=== PATIENT | female | born 1960 | race Caucasian/White ===

== ENCOUNTER → 2017-04-05 | Outpatient (CLI) | payer OTHER ==
[~2017-04-05] MED LIST: CHOL100027 PO; CLX20 PO; CYAN10004 PO; GFNSR600 PO; MULT-513 PO; OXYSR20 PO; RXC5 PO; XRL10 PO
--- NOTE | 2017-04-05 07:51 | DIAGNOSTIC IMAGING REPORT ---
FUSION CT SINUSES W/O HISTORY: Recurrent sinus infections. R51 Headache TECHNIQUE: Multiaxial CT images of the sinuses were performed reformatted in the coronal plane without the use of intravenous contrast. Fusion CT sinus protocol was also obtained. COMPARISON STUDY: None. FINDINGS: Partial opacification of the lateral aspect of the right frontal sinus and right frontoethmoidal recess with a small amount of fluid. Otherwise, the ethmoid air cells, sphenoid sinuses, left maxillary sinus, mastoid air cells, left frontal sinus are clear. Mild mucosal thickening within the floor the right maxillary sinus. The nasal septum is essentially midline. Bilateral ostiomeatal units are patent. The orbital floors and lamina papyracea are intact. The orbits are unremarkable. The visualized brain parenchyma is unremarkable. The pterygopalatine fossa are intact. IMPRESSION: Mild right-sided sinus disease as described above. Electronically signed by: Raza Guzman M.D. 04/05/2017 7:49 AM Dictated Date/Time: 04/05/2017 7:44 AM
== END | disposition home or self-care (01) ==
LOC: C.CTS 07:24
PROVIDERS: ATTEND Physician Assistant
DX: J01.01 Acute recurrent maxillary sinusitis (principal); R51 Headache

== ENCOUNTER 2019-09-21 06:06 | Inpatient (IN) ==
--- NOTE | 2019-09-04 13:12 | PAT Medication Instructions ---
Medication Instructions Date of Service September 04, 2019 Home Medications citalopram 40 mg tablet 40 mg PO HS diclofenac sodium 1 % topical gel 4 gm TOP QID PRN fluconazole 150 mg tablet 150 mg PO Q3D PRN furosemide 40 mg tablet 40 mg PO QAM gabapentin 800 mg tablet 800 mg PO TID lorazepam 0.5 mg tablet 0.5 mg SL TID PRN montelukast 10 mg tablet 10 mg PO QPM naproxen sodium 220 mg capsule 220 mg PO BID PRN omeprazole 20 mg capsule,delayed release 20 mg PO BID ranitidine HCl 150 mg capsule 150 mg PO HS ursodiol 300 mg capsule 300 mg PO BID hydrocodone 10 mg-acetaminophen 325 mg tablet 1 tab PO BID PRN albuterol sulfate [Ventolin HFA] 1 puff INHALATION Q6H PRN amoxicillin 875 mg PO BID cholecalciferol (vitamin D3) 1,000 unit PO DAILY cyanocobalamin (vitamin B-12) 500 mcg PO DAILY levocetirizine [Xyzal] 5 mg PO HS multivitamin 1 tab PO QAM ASK your surgeon for instructions naproxen sodium 220 mg capsule 220 mg PO BID PRN STOP taking 24 hours before surgery diclofenac sodium 1 % topical gel 4 gm TOP QID PRN DO NOT take the morning of surgery furosemide 40 mg tablet 40 mg PO QAM cholecalciferol (vitamin D3) 1,000 unit PO DAILY cyanocobalamin (vitamin B-12) 500 mcg PO DAILY multivitamin 1 tab PO QAM Take morning of surgery With a small sip of water, OTHERWISE NOTHING TO EAT OR DRINK AFTER MIDNIGHT: fluconazole 150 mg tablet 150 mg PO Q3D PRN (if needed) gabapentin 800 mg tablet 800 mg PO TID lorazepam 0.5 mg tablet 0.5 mg SL TID PRN (if needed) omeprazole 20 mg capsule,delayed release 20 mg PO BID ursodiol 300 mg capsule 300 mg PO BID hydrocodone 10 mg-acetaminophen 325 mg tablet 1 tab PO BID PRN (if needed, may be taken up to four hours before surgery) albuterol sulfate [Ventolin HFA] 1 puff INHALATION Q6H PRN (if needed, and bring with you to the hospital) amoxicillin 875 mg PO BID Take evening before surgery citalopram 40 mg tablet 40 mg PO HS diclofenac sodium 1 % topical gel 4 gm TOP QID PRN (if needed) fluconazole 150 mg tablet 150 mg PO Q3D PRN (if needed) gabapentin 800 mg tablet 800 mg PO TID lorazepam 0.5 mg tablet 0.5 mg SL TID PRN (if needed) montelukast 10 mg tablet 10 mg PO QPM omeprazole 20 mg capsule,delayed release 20 mg PO BID ranitidine HCl 150 mg capsule 150 mg PO HS ursodiol 300 mg capsule 300 mg PO BID hydrocodone 10 mg-acetaminophen 325 mg tablet 1 tab PO BID PRN (if needed) albuterol sulfate [Ventolin HFA] 1 puff INHALATION Q6H PRN (if needed) amoxicillin 875 mg PO BID levocetirizine [Xyzal] 5 mg PO HS Other Notes If you have any questions please call us at [phone] or [phone] or [phone] or [phone]
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
[2019-09-07 10:36] LABS: Appearance Urine Clear (Clear); Bilirubin Urine Negative (Negative); Blood Urine Negative (Negative); Color Urine Dark Yellow; Glucose Urine UA Negative (Negative); Ketones Urine Negative (Negative); Leukocyte Esterase Urine Negative (Negative); Nitrite Urine Negative (Negative); Protein Urine Negative (Negative); Specific Gravity Urine 1.035 (1.000-1.030); Urobilinogen Urine Negative (Negative); pH Urine 5.5 (4.5-7.5)
[2019-09-07 10:38] LABS: Basophils # (auto) 0.04 K/uL (0-0.2); Basophils % (auto) 0.6 %; Eosinophils # (auto) 0.84 K/uL (0-0.5); Eosinophils % (auto) 12.1 %; Hematocrit (blood only) 38.1 % (37-47); Hemoglobin 12.2 g/dL (12.0-16.0); Immature Granulocytes # (auto) 0.06 K/uL (0.00-0.02); Immature Granulocytes % (auto) 0.9 %; Lymphocytes % (auto) 28.7 %; Mean Corpuscular Hemoglobin 31.3 pg (25-34); Mean Corpuscular Volume 97.7 fL (80-100); Monocytes # (auto) 0.58 K/uL (0.11-0.59); Monocytes % (auto) 8.3 %; Neutrophils # (auto) 3.45 K/uL (1.4-6.5); Neutrophils % (auto) 49.4 %; Platelet Count 358 K/uL (130-400); RDW Coefficient of Variation 12.9 % (11.5-14.5); RDW Standard Deviation 45.8 fL (36.4-46.3); White Blood Count 6.97 K/uL (4.8-10.8)
[2019-09-07 10:46] LABS: Partial Thromboplastin Ratio 0.9; Partial Thromboplastin Time 25.7 Seconds (21.0-31.0); Prothrombin Time 10.3 Seconds (9.0-12.0)
[~2019-09-21 06:06] MED LIST changes: +CEFAZOLIN 3000MG 72.5 ML IV SCH; -CHOL100027 PO; -CLX20 PO; -CYAN10004 PO; +CeleBREX 200 MG CAP PO SCH; +GABAPENTIN 600 MG DOSE PO SCH; -GFNSR600 PO; +LR 15ML/HR IV SCH; -MULT-513 PO; -OXYSR20 PO; -RXC5 PO; -XRL10 PO
[2019-09-21] MEDS ORDERED: LIDOCAINE HCL 2% 2 ML VIAL/AMP(20MG/ML) INFIL ONE (06:49)
[2019-09-21] MEDS ORDERED: ONDANSETRON INJ 2 MG/ML 2 ML VIAL ONE (06:49)
[2019-09-21] MEDS ORDERED: fentaNYL citrate 100 MCG/2 ML VIAL ONE ×2 (06:49→08:10)
[2019-09-21] MEDS ORDERED: MIDAZOLAM HCL 1 MG/ML 2ML VIAL ONE (06:49)
[2019-09-21] MEDS ORDERED: ROCURONIUM BROMIDE 10 MG/ML 5 ML VIAL ONE (06:49)
[2019-09-21] MEDS ORDERED: PROPOFOL IV EMULSION 10 MG/ML 20 ML VIAL IV ONE (06:49)
[2019-09-21] MEDS ORDERED: BACITRACIN INJ 50,000 UNIT VIAL ONE (07:06)
[2019-09-21] MEDS ORDERED: BUPIVACAINE/EPINEPHRINE 0.25% 1:200,000 30 ML VIAL ONE (07:06)
[2019-09-21] MEDS: ACETAMINOPHEN 500 MG TAB PO SCH ×2 (07:07→07:08)
[2019-09-21] MEDS ORDERED: ONDANSETRON INJ 2 MG/ML 2 ML VIAL IV PRN ×2 (07:14→11:59)
[2019-09-21] MEDS ORDERED: LABETALOL HCL IV 5 MG/ML 20ML IV PRN (07:14)
[2019-09-21] MEDS ORDERED: ATROPINE SULFATE 0.1 MG/ML 10ML SYR IV PRN (07:14)
--- NOTE | 2019-09-21 07:28 | History & Physical Bridge Note ---
Date of Service September 21, 2019 History & Physical Bridge Note I have examined the patient, reviewed the History & Physical and in the interval since the performance of the History & Physical I have noted the following changes of clinical significance: no changes noted
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
[2019-09-21] MEDS ORDERED: GLYCOPYRROLATE 0.2 MG/ML VIAL ONE (09:41)
[2019-09-21] MEDS ORDERED: NEOSTIGMINE METHYLSULFATE 1 MG/ML 10ML VIAL ONE (09:41)
[2019-09-21] MEDS ORDERED: FLOSEAL HEMOSTATIC MATRIX 10ML TOP ONE (10:10)
--- NOTE | 2019-09-21 10:23 | Operative Report ---
Post Operative Report Pre & Post Diagnosis Operation Date: 09/21/19 07:45 Pre-Op Diagnosis: LUMBAR SPINAL STENOSIS W/NEUROGENIC CLAUDICATION Morbid obesity Post-Op Diagnosis: LUMBAR SPINAL STENOSIS W/NEUROGENIC CLAUDICATION Morbid obesity I identified the patient and participated in the time-out.: Yes Procedure Operation Date: 09/21/19 07:45 Actual Procedures #1 lumbar decompression with bilateral medial facetectomies foraminotomies L3-4 L4-5 L5-S1. #2 posterior spinal fusion L3-4 L4-5 L5-S1. #3 placement posterior segmental instrumentation L3-S1. #4 interbody fusion L4-5 L5-S1. #5 placement of titanium 9 x 22 mm cage at L4-5 and 10 x 22 mm cage at L5-S1. #6 placement of locally harvested morselized autograft in the posterior lateral gutters per #7 placement infuse collagen sponge combined master graft in the posterior lateral gutters and ostial amp and interbody space. Surgeon Jerry Huerta, DO Health Data Administrator Gricel Kimble Estimated Blood Loss 250 Findings See Below Patient is 5 foot 3 inches tall weighing over 124 kg with a BMI in excess of 48. Patient's morbid obesity created significant technical difficulty adding at least 50% increase in operative time. Specimens None Indications This is a 5-year-old female presents with above-mentioned diagnosis after failing extensive course of nonoperative care is here for surgical intervention. Description of Procedure Patient was met with identified informed consent obtained. Patient was then taken to the operative suite underwent an patient placed in a prone position the Jovan table on top Francis frame. All bony prominences well-padded eyes inspected to ensure no external pressure placed upon. This point the lumbar spine was prepped and draped in a sterile fashion. Sharp dissection with the assistance of Bovie cautery was performed down to and exposing the lamina and transverse processes of L3-L4-L5 and sacral ala bilaterally. From caudal cephalad fashion complete laminectomy of L5 L4 and L3 was performed addressing including bilateral medial facetectomies and foraminotomies addressing severe spinal stenosis. Pedicle screws were then placed in L3-L4-L5 and the S1 levels bilaterally. The purposes malvin is in place. Believe a transforaminal portion radically discectomy of L5-S1 was performed endplates curetted to subcortical bleeding bone and a 10 x 22 mm titanium cage filled with ostium bone graft tapped in position. Then proceeded to L4-5. Again by way of a transforaminal portion right complete discectomy performed endplates curetted to subcortical being bone and a 9 x 22 mm titanium cage filled with osteo-bone graft tapped in position. The rods were then locked in final position bilaterally. The transverse processes of L3-L4-L5 and the sacral ala bur to subcortical bleeding bone. Infuse collagen sponge master graft and local autograft was then placed in the posterior lateral gutters. 15 round ROBERT drain inserted. The incision was then closed with 1 Vicryl in the fascia 2-0 Vicryl subcutaneously and 4 Monocryl for final skin closure. Steri-Strip sterile dressings placed. Patient will continue PACU stable condition. Please note Gricel Kimble was present at the entire procedure involved in patient positioning complex portions of the surgery and final skin closure. Lastly spinal cord monitoring was utilized that the procedure no changes noted. I attest to the content of the Intraoperative Record and any orders documented therein. Any exceptions are noted below.
--- NOTE | 2019-09-21 10:36 | Fluoroscopy Report ---
FL lumbar spine 2-3V CLINICAL HISTORY: L3-S1 DECOMPRESSION/FUSION COMPARISON STUDY: None FLUOROSCOPY TIME: 37 seconds NUMBER OF FLUOROSCOPIC IMAGES: 2 FINDINGS: Image intensifier utilized for intraoperative lumbar laminectomy and fusion IMPRESSION: Image intensifier support for lumbar laminectomy and fusion. The above report was generated using voice recognition software. It may contain grammatical, syntax or spelling errors. Electronically signed by: Arnoldo Dasilva M.D. 09/21/2019 10:35 AM
[2019-09-21] MEDS: HYDROmorphone INJ 1 MG/ML SYRINGE IV PRN ×8 (10:50→11:25)
[2019-09-21] MEDS ORDERED: HYDROmorphone INJ 2 MG/ML SYR/VIAL ONE (10:53)
--- NOTE | 2019-09-21 11:29 | Anesthesiology Progress Note ---
Date of Service September 21, 2019 Anesthesia Post Procedure Vital Signs Vital Signs: Temp Pulse Pulse Resp BP Pulse Ox 09/21/19 11:20 78 14 118/61 99 09/21/19 11:10 66 14 124/67 98 09/21/19 11:00 70 14 145/68 H 100 09/21/19 10:50 92 H 16 145/66 H 100 09/21/19 10:43 37.4 C 93 H 16 146/99 H 100 09/21/19 06:38 36.7 C 73 20 153/108 H 94 Transfer of Care Handoff Completed per policy Notes Mental Status: alert / awake / arousable Patient Amnestic to Procedure: Yes Nausea / Vomiting: adequately controlled Pain: adequately controlled Airway Patency, RR, SpO2: stable & adequate BP & HR: stable & adequate Hydration State: stable & adequate Anesthetic Complications: no major complications apparent
[2019-09-21] MEDS ORDERED: FAMOTIDINE 20 MG TAB PO PRN (11:59)
[2019-09-21] MEDS ORDERED: ALBUTEROL HFA 8 GM INHALER INH PRN (11:59)
[2019-09-21] MEDS ORDERED: DO NOT ADMINISTER PNEUMOCOCCAL VACCINE PRN (11:59)
[2019-09-21] MEDS ORDERED: ALUMINUM/MAGNESIUM SUSP 30 ML UDC PO PRN (11:59)
[2019-09-21] MEDS ORDERED: ONDANSETRON 4 MG OD TAB PO PRN (11:59)
[2019-09-21] MEDS ORDERED: NALOXONE HCL 0.4 MG/1 ML VIAL/CARP IV PRN (11:59)
[2019-09-21] MEDS ORDERED: PROMETHAZINE HCL 12.5 MG in SODIUM CHLORIDE 0.9% 50 ML IV PRN (11:59)
[2019-09-21] MEDS ORDERED: HYDROmorphone INJ 1 MG/ML SYRINGE IV PRN (11:59)
[2019-09-21] MEDS ORDERED: MAGNESIUM HYDROXIDE SUSP 30 ML UDC PO PRN (11:59)
[2019-09-21] MEDS ORDERED: ACETAMINOPHEN 1,000 MG/100 ML VIAL IV PRN (11:59)
[2019-09-21] MEDS ORDERED: METOCLOPRAMIDE HCL INJ 5 MG/ML 2 ML VIAL IV PRN (11:59)
[2019-09-21] MEDS ORDERED: DO NOT ADMINISTER FLU VACCINE PRN (11:59)
[2019-09-21] MEDS ORDERED: LORazepam 0.5 MG/1 ML VIAL IV PRN (11:59)
[2019-09-21] MEDS ORDERED: SOD PHOSPHATE/SOD BIPHOSPHATE ENEMA 132 ML BTL PR PRN (11:59)
[2019-09-21] MEDS ORDERED: bisacodyL 10 MG SUPP PR PRN (11:59)
[2019-09-21] MEDS: SODIUM CHLORIDE 0.9% 1000ML 1,000 ML IV SCH ×2 (12:31→19:12)
[2019-09-21] MEDS: KETOROLAC TROMETHAMINE 15 MG/ML VIAL IV SCH ×3 (12:31→23:39)
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
[2019-09-21] MEDS: GABAPENTIN 800 MG TAB PO SCH ×2 (14:00→21:08)
[2019-09-21] MEDS: OXYCODONE HCL IR 5 MG TAB (IMMEDIATE RELEASE) PO PRN (14:41)
[2019-09-21] MEDS: CEFAZOLIN 2000MG 2,000 MG/15 ML SYR IV SCH ×2 (16:11→23:39)
[2019-09-21] MEDS: XYZAL ~ ORDER AWAITING ACTION SCH ×2 (16:12→23:39)
[2019-09-21] MEDS: TRAMADOL HCL 50 MG TABLET PO PRN (19:05)
[2019-09-21] MEDS: PANTOprazole 40 MG TAB PO SCH (21:08)
[2019-09-21] MEDS: MONTELUKAST SODIUM 10 MG TABLET PO SCH (21:08)
[2019-09-21] MEDS: ursodioL 300 MG CAP PO SCH (21:09)
[2019-09-21] MEDS: DOCUSATE SODIUM/SENNA 50/8.6MG TAB PO SCH (21:09)
[2019-09-21] MEDS: CITALOPRAM 40 MG TAB PO SCH (21:09)
[2019-09-22] MEDS: LORazepam 0.5 MG TAB PO PRN ×3 (00:32→18:38)
[2019-09-22] MEDS: SODIUM CHLORIDE 0.9% 1000ML 1,000 ML IV SCH (00:33)
[2019-09-22] MEDS: OXYCODONE HCL IR 5 MG TAB (IMMEDIATE RELEASE) PO PRN ×4 (00:55→16:38)
[2019-09-22 05:19] LABS: Basophils # (auto) 0.05 K/uL (0-0.2); Basophils % (auto) 0.7 %; Eosinophils # (auto) 0.18 K/uL (0-0.5); Eosinophils % (auto) 2.6 %; Hematocrit (blood only) 31.8 % (37-47); Hemoglobin 10.2 g/dL (12.0-16.0); Immature Granulocytes # (auto) 0.04 K/uL (0.00-0.02); Immature Granulocytes % (auto) 0.6 %; Lymphocytes # (auto) 1.85 K/uL (1.2-3.4); Lymphocytes % (auto) 26.3 %; Mean Corpuscular Hemoglobin 31.4 pg (25-34); Mean Corpuscular Hgb Conc 32.1 g/dL (32-36); Mean Corpuscular Volume 97.8 fL (80-100); Mean Platelet Volume 9.2 fL (7.4-10.4); Monocytes # (auto) 0.63 K/uL (0.11-0.59); Neutrophils # (auto) 4.28 K/uL (1.4-6.5); Neutrophils % (auto) 60.8 %; Platelet Count 264 K/uL (130-400); RDW Coefficient of Variation 13.1 % (11.5-14.5); Red Blood Count 3.25 M/uL (4.2-5.4); White Blood Count 7.03 K/uL (4.8-10.8)
[2019-09-22 05:43] LABS: BUN Creatinine Ratio 18.5 (10-20); Calcium 7.4 mg/dl (8.5-10.1); Creatinine Clr Calc Pharmacy 153.7 ml/min; Est GFR (African American) 121.9; Est GFR (Non-African American) 105.2; Potassium 3.5 mmol/L (3.5-5.1)
[2019-09-22] MEDS: POLYETHYLENE (MIRALAX) 17 GM PACK PO SCH ×4 (05:59→23:30)
[2019-09-22] MEDS: KETOROLAC TROMETHAMINE 15 MG/ML VIAL IV SCH (06:00)
[2019-09-22] MEDS: XYZAL ~ ORDER AWAITING ACTION SCH ×3 (07:46→23:30)
--- NOTE | 2019-09-22 08:21 | Anesthesiology Progress Note ---
Date of Service September 22, 2019 Anesthesia Post Procedure Vital Signs Vital Signs: Temp Pulse Pulse Resp BP BP Pulse Ox 09/22/19 07:37 36.7 C 88 18 136/72 93 09/22/19 04:10 36.6 C 85 16 125/66 97 09/21/19 23:20 94 09/21/19 23:15 36.6 C 83 18 112/71 82 L 09/21/19 19:50 36.6 C 89 16 147/71 H 92 09/21/19 14:57 36.5 C 76 18 113/68 99 09/21/19 13:57 71 18 126/73 99 09/21/19 12:58 36.7 C 80 18 145/81 H 100 09/21/19 12:26 36.4 C L 68 18 144/76 H 98 09/21/19 11:55 36.7 C 82 20 130/72 99 09/21/19 11:40 75 14 115/75 98 09/21/19 11:30 72 14 127/86 98 09/21/19 11:20 78 14 118/61 99 09/21/19 11:10 66 14 124/67 98 09/21/19 11:00 70 14 145/68 H 100 09/21/19 10:50 92 H 16 145/66 H 100 09/21/19 10:43 37.4 C 93 H 16 146/99 H 100 Notes Mental Status: alert / awake / arousable and participated in evaluation Patient Amnestic to Procedure: Yes Nausea / Vomiting: adequately controlled Pain: adequately controlled Airway Patency, RR, SpO2: stable & adequate BP & HR: stable & adequate Hydration State: stable & adequate Anesthetic Complications: no major complications apparent and Pt Satisfied with anesthetic care
[2019-09-22] MEDS: ursodioL 300 MG CAP PO SCH ×2 (08:36→20:54)
[2019-09-22] MEDS: GABAPENTIN 800 MG TAB PO SCH ×3 (08:36→20:54)
[2019-09-22] MEDS: PANTOprazole 40 MG TAB PO SCH ×2 (08:37→20:55)
[2019-09-22] MEDS: CYANOCOBALAMIN 500 MCG TABLET (VITAMIN B-12) PO SCH (08:37)
[2019-09-22] MEDS: MULTIVITAMIN TAB PO SCH (08:37)
[2019-09-22] MEDS: CHOLECALCIFEROL 1,000 UNITS TAB PO SCH (08:38)
[2019-09-22] MEDS: ACETAMINOPHEN 500 MG TAB PO PRN ×2 (08:39→20:54)
--- NOTE | 2019-09-22 08:40 | Orthopedic Progress Note ---
Date of Service September 22, 2019 Assessment & Plan (1) Neurogenic claudication due to lumbar spinal stenosis: This time we will continue physical therapy advance her bowel regiment hopefully discharge home in the next few days. Present on Admission?: Yes Subjective Back pain controlled leg symptoms improved. Physical Exam Physical Exam: Patient is in the bed. She is good strength testing. Appears comfortable. Results & Data Vital Signs (Past 12 Hours) Vital Signs Temp Pulse Resp BP Pulse Ox 09/22/19 07:37 36.7 C 88 18 136/72 93 09/22/19 04:10 36.6 C 85 16 125/66 97 09/21/19 23:20 94 09/21/19 23:15 36.6 C 83 18 112/71 82 L
[2019-09-22] MEDS ORDERED: FUROSEMIDE 40 MG TAB PO SCH (09:00)
[2019-09-22] MEDS: TRAMADOL HCL 50 MG TABLET PO PRN ×3 (10:54→19:48)
[2019-09-22] MEDS: HYDROmorphone INJ 0.5 MG/0.5 ML SYR IV PRN (13:58)
--- NOTE | 2019-09-22 14:25 | Hospitalist Progress Note ---
Date of Service September 22, 2019 Assessment & Plan (1) Neurogenic claudication due to lumbar spinal stenosis: L3- S1 Lumbar decompression/fusion by Dr. Huerta POD #1 Pain is controlled Wound care, activity as per primary team Orthopedics on board Continue incentive spirometry Encourage ambulation PT/OT (2) GERD (gastroesophageal reflux disease): continue PPI (3) Leg edema: Euvolemic Resume Lasix tomorrow Monitor volume status (4) Anxiety: mood stable continue citalopram (5) Asthma: No signs of exacerbation Albuterol PRN (6) DVT prophylaxis: SCD/TEDS Per ortho Disposition: per ortho Subjective Patient is seen and examined at bedside Back pain is controlled + Flatus, no bowel movement yet Denies any chest pain, shortness of breath, dizziness, nausea, abdominal pain Offers no other complaints Review of Systems Review of Systems: All systems reviewed & are unremarkable except as noted in HPI & below Physical Exam Physical Exam: Physical Exam: Vitals signs as noted above General Appearance:Morbidly Obese, no apparent distress Head: normocephalic, Atraumatic Eyes: normal inspection, EOMI Neck: supple, Trachea midline Respiratory/Chest: Normal breath sounds, CTA Cardiovascular: S1, S2, No murmur Abdomen/GI:Soft, Non tender, Bowel sounds present Back: surgical site in dressing,+drain Extremities/Musculoskelatal:normal inspection, no edema Neurologic/Psych:AAOX3, grossly no focal neurological deficits Skin: normal color, warm Results & Data Vital Signs (Past 12 Hours) Vital Signs Temp Pulse Resp BP Pulse Ox 09/22/19 11:30 97 09/22/19 07:37 36.7 C 88 18 136/72 93 09/22/19 04:10 36.6 C 85 16 125/66 97 Laboratory Results Short CBC 09/22/19 Range/Units 04:59 WBC 7.03 (4.8-10.8) K/uL Hgb 10.2 L (12.0-16.0) g/dL Hct 31.8 L (37-47) % Plt Count 264 (130-400) K/uL [facility] 09/22/19 04:58 Sodium 141 Potassium 3.5 Chloride 110 H Carbon Dioxide 30 BUN 9 Creatinine 0.50 L Glucose 93 Calcium 7.4 L
[2019-09-22] MEDS: DOCUSATE SODIUM/SENNA 50/8.6MG TAB PO SCH (20:54)
[2019-09-22] MEDS: CITALOPRAM 40 MG TAB PO SCH (20:54)
[2019-09-22] MEDS: MONTELUKAST SODIUM 10 MG TABLET PO SCH (20:54)
[2019-09-23] MEDS: TRAMADOL HCL 50 MG TABLET PO PRN ×4 (04:31→21:29)
[2019-09-23] MEDS: ACETAMINOPHEN 500 MG TAB PO PRN (05:47)
[2019-09-23] MEDS: POLYETHYLENE (MIRALAX) 17 GM PACK PO SCH ×4 (05:48→23:53)
[2019-09-23 06:33] LABS: Hematocrit (blood only) 32.3 % (37-47); Hemoglobin 10.4 g/dL (12.0-16.0); Mean Corpuscular Hemoglobin 31.6 pg (25-34); Mean Corpuscular Hgb Conc 32.2 g/dL (32-36); Mean Corpuscular Volume 98.2 fL (80-100); Mean Platelet Volume 9.3 fL (7.4-10.4); Platelet Count 236 K/uL (130-400); RDW Coefficient of Variation 12.9 % (11.5-14.5); RDW Standard Deviation 46.6 fL (36.4-46.3); Red Blood Count 3.29 M/uL (4.2-5.4); White Blood Count 8.86 K/uL (4.8-10.8)
[2019-09-23 07:03] LABS: BUN Creatinine Ratio 16.4 (10-20); Calcium 8.5 mg/dl (8.5-10.1); Creatinine Clr Calc Pharmacy 132.5 ml/min; Est GFR (African American) 116.1; Est GFR (Non-African American) 100.2; Magnesium 2.1 mg/dl (1.8-2.4); Potassium 3.6 mmol/L (3.5-5.1)
[2019-09-23] MEDS: OXYCODONE HCL IR 5 MG TAB (IMMEDIATE RELEASE) PO PRN ×3 (07:14→18:20)
[2019-09-23] MEDS: XYZAL ~ ORDER AWAITING ACTION SCH ×2 (07:37→16:01)
[2019-09-23] MEDS: PANTOprazole 40 MG TAB PO SCH ×2 (07:39→20:04)
[2019-09-23] MEDS: CHOLECALCIFEROL 1,000 UNITS TAB PO SCH (07:39)
[2019-09-23] MEDS: CYANOCOBALAMIN 500 MCG TABLET (VITAMIN B-12) PO SCH (07:39)
[2019-09-23] MEDS: MULTIVITAMIN TAB PO SCH (07:39)
[2019-09-23] MEDS: LEVOCETIRIZINE DIHYDROCHLORIDE 5 MG PO SCH (07:40)
[2019-09-23] MEDS: GABAPENTIN 800 MG TAB PO SCH ×3 (07:40→20:04)
[2019-09-23] MEDS: ursodioL 300 MG CAP PO SCH ×2 (07:40→20:04)
--- NOTE | 2019-09-23 09:11 | Hospitalist Progress Note ---
Date of Service September 23, 2019 Assessment & Plan (1) Neurogenic claudication due to lumbar spinal stenosis: POD #2 L3- S1 Lumbar decompression/fusion by Dr. Huerta EBL: 250ml; ROBERT drain 690ml tolerated procedure well pain/wound management per ortho activity and therapy as directed by ortho encourage incentive spirometry monitor H&H - stable at 10.4 and 32.3 (pre op 12.2/38,1) (2) Postoperative anemia: expected ebl 250 ml; ROBERT drain 690 ml H/H stable at 10.4 and 32.3 (3) GERD (gastroesophageal reflux disease): continue PPI (4) Leg edema: Euvolemic continue lasix, renal fxn stable Monitor volume status (5) Anxiety: mood stable continue citalopram (6) Asthma: No signs of exacerbation Albuterol PRN (7) DVT prophylaxis: SCD/TEDS Per ortho Disposition: Per ortho Follow up: PCP PB Lynn upon discharge Patient was seen and examined in collaboration with Dr. Hatfield, please see addendum Thank you for this consultation. We will follow the patient with you during their hospital stay. You [facility] reach a [facility] via pager @ [phone]. Supervising Physician Co-Signing Physician Notes Patient seen in her room around 1100. Care coordinated with Doris Hankins PA-C. Doing well postoperatively. No chest pain, cough, SOB, nausea, vomiting. Passing flatus, but no stool. Pain fairly well-controlled. General- no distress. Lungs- clear Heart- RRR Abd- + BS, soft, nontender Extr- trace edema Labs: Hgb 10.4 A/P: Doing well postop. Pulmonary status stable. Please refer to MIKEY Hankins's documentation for detailed discussion. Thank you for this consultation. We will follow the patient with you during their hospital stay. My cell # is [phone]. You can reach a member of the [facility] Team 06/05 via pager @ [phone]. Subjective Patient was seen and examined in room 315. Follow-up lumbar decompression fusion by Dr. Huerta POD #2. Overall patient feels well. Ambulated around unit this morning. Denies fever, chills, sweats, lightheadedness, dizziness, chest pain, shortness of breath, cough, nausea, vomiting, abdominal pain, lower extremity edema. She is passing flatus but has not moved her bowels. "They are giving the MiraLAX 4 times a day they have to move soon." She does complain of incisional back pain that comes and goes. Currently rates pain 4/10. Review of Systems Review of Systems: All systems reviewed & are unremarkable except as noted in HPI & below Physical Exam Physical Exam: Gen: WD/WN, female, NAD, A&O x3 HEENT: Normocephalic, atraumatic, conjunctivae moist, sclerae anicteric, mucous membranes moist. Lung: Clear to Auscultation bilaterally, no wheezes/rales/rhonchi Heart: Regular rate, regular rhythm, 2/6 SUNIL noted best RUSB,no rubs, or gallops Abdomen: Soft, NT, ND +BS x 4 Extremities: Trace lower extremity edema, mild venous stasis changes, Skin: Warm, no rash, negative turgor. Results & Data Vital Signs (Past 12 Hours) Vital Signs Temp Pulse Pulse Resp BP BP Pulse Ox 09/23/19 07:30 97 09/23/19 07:20 36.6 C 75 17 114/72 98 09/23/19 06:50 37 C 84 18 108/72 97 09/22/19 23:35 95 09/22/19 23:30 36.8 C 79 18 120/74 88 L Laboratory Results Short CBC 09/23/19 Range/Units 06:15 WBC 8.86 (4.8-10.8) K/uL Hgb 10.4 L (12.0-16.0) g/dL Hct 32.3 L (37-47) % Plt Count 236 (130-400) K/uL BMP 09/23/19 06:15 Sodium 139 Potassium 3.6 Chloride 107 Carbon Dioxide 31 BUN 10 Creatinine 0.58 L Glucose 117 H Calcium 8.5 Medications Administered Acetaminophen (Tylenol) 1,000 mg PO Q8H PRN PRN Reason: MILD Pain Rating 1,2,3 Stop: 10/21/19 11:58 Last Admin: 09/23/19 05:47 Dose: 1,000 mg Documented by: [id number] Admin: 09/22/19 20:54 Dose: 1,000 mg Documented by: [id number] Admin: 09/22/19 08:39 Dose: 1,000 mg Documented by: [id number] Citalopram Hydrobromide (Celexa) 40 mg PO HS [facility] Stop: 10/21/19 20:59 Last Admin: 09/22/19 20:54 Dose: 40 mg Documented by: [id number] Admin: 09/21/19 21:09 Dose: 40 mg Documented by: [id number] Cyanocobalamin (Vitamin B-12) 500 mcg PO DAILY [facility] Stop: 10/22/19 08:59 Last Admin: 09/23/19 07:39 Dose: Not Given Documented by: [id number] Admin: 09/22/19 08:37 Dose: Not Given Documented by: [id number] Diphenhydramine HCl (Benadryl Capsule) 25 mg PO Q6H PRN PRN Reason: Allergic Rhinitis/Insomnia Stop: 10/21/19 11:58 Last Admin: 09/22/19 13:04 Dose: 25 mg Documented by: [id number] Admin: 09/21/19 21:14 Dose: 25 mg Documented by: [id number] Gabapentin (Neurontin) 800 mg PO TID [facility] Stop: 10/21/19 13:59 Last Admin: 09/23/19 07:40 Dose: 800 mg Documented by: [id number] Admin: 09/22/19 20:54 Dose: 800 mg Documented by: [id number] Admin: 09/22/19 13:05 Dose: 800 mg Documented by: [id number] Admin: 09/22/19 08:36 Dose: 800 mg Documented by: [id number] Admin: 09/21/19 21:08 Dose: 800 mg Documented by: [id number] Admin: 09/21/19 14:00 Dose: 800 mg Documented by: [id number] Hydromorphone HCl (Dilaudid) 0.5 mg IV Q3H PRN PRN Reason: moderate pain (scale 4-6) Stop: 10/05/19 11:58 Last Admin: 09/22/19 13:58 Dose: 0.5 mg Documented by: [id number] Levocetirizine (Levocetirizine Dihydrochloride) 1 ea PO QAM [facility] Stop: 10/23/19 08:59 Last Admin: 09/23/19 07:40 Dose: 1 ea Documented by: [id number] Lorazepam (Ativan) 0.5 mg PO Q8H PRN PRN Reason: Sedation/Anxiety Stop: 10/21/19 11:58 Last Admin: 09/22/19 18:38 Dose: 0.5 mg Documented by: [id number] Admin: 09/22/19 09:20 Dose: 0.5 mg Documented by: [id number] Admin: 09/22/19 00:32 Dose: 0.5 mg Documented by: [id number] Miscellaneous (Order Awaiting Action) 1 ea N/A QS [facility] Stop: 10/21/19 15:59 Last Admin: 09/23/19 07:37 Dose: Not Given Documented by: [id number] Admin: 09/22/19 23:30 Dose: Not Given Documented by: [id number] Admin: 09/22/19 15:38 Dose: Not Given Documented by: [id number] Admin: 09/22/19 07:46 Dose: Not Given Documented by: [id number] Admin: 09/21/19 23:39 Dose: Not Given Documented by: [id number] Admin: 09/21/19 16:12 Dose: Not Given Documented by: [id number] Montelukast Sodium (Singulair) 10 mg PO QPM [facility] Stop: 10/21/19 20:59 Last Admin: 09/22/19 20:54 Dose: 10 mg Documented by: [id number] Admin: 09/21/19 21:08 Dose: 10 mg Documented by: [id number] Multivitamins (Multivitamin Tab) 1 tab PO QAM [facility] Stop: 10/22/19 08:59 Last Admin: 09/23/19 07:39 Dose: Not Given Documented by: [id number] Admin: 09/22/19 08:37 Dose: Not Given Documented by: [id number] Oxycodone HCl (Roxicodone Immediate Rel) 5 - 10 mg PO Q4H PRN PRN Reason: Moderate-Severe Pain Stop: 10/05/19 11:58 Last Admin: 09/23/19 07:14 Dose: 10 mg Documented by: [id number] Admin: 09/22/19 16:38 Dose: 10 mg Documented by: [id number] Admin: 09/22/19 12:15 Dose: 10 mg Documented by: [id number] Admin: 09/22/19 07:45 Dose: 10 mg Documented by: [id number] Admin: 09/22/19 00:55 Dose: 10 mg Documented by: [id number] Admin: 09/21/19 14:41 Dose: 10 mg Documented by: [id number] Pantoprazole Sodium (Protonix) 40 mg PO BID [facility] Stop: 10/21/19 20:59 Last Admin: 09/23/19 07:39 Dose: 40 mg Documented by: [id number] Admin: 09/22/19 20:55 Dose: 40 mg Documented by: [id number] Admin: 09/22/19 08:37 Dose: 40 mg Documented by: [id number] Admin: 09/21/19 21:08 Dose: 40 mg Documented by: [id number] Polyethylene Glycol (Miralax Powder Packet) 17 gm PO Q6 [facility] Stop: 10/22/19 05:59 Last Admin: 09/23/19 05:48 Dose: 17 gm Documented by: [id number] Admin: 09/22/19 23:30 Dose: 17 gm Documented by: [id number] Admin: 09/22/19 18:27 Dose: 17 gm Documented by: [id number] Admin: 09/22/19 11:29 Dose: 17 gm Documented by: [id number] Admin: 09/22/19 05:59 Dose: 17 gm Documented by: [id number] Senna/Docusate Sodium (Senokot S) 2 tab PO HS [facility] Stop: 10/21/19 20:59 Last Admin: 09/22/19 20:54 Dose: 2 tab Documented by: [id number] Admin: 09/21/19 21:09 Dose: 2 tab Documented by: [id number] Tramadol HCl (Ultram) 50 - 100 mg PO Q4H PRN PRN Reason: Moderate-Severe Pain Stop: 10/21/19 11:58 Last Admin: 09/23/19 04:31 Dose: 100 mg Documented by: [id number] Admin: 09/22/19 19:48 Dose: 100 mg Documented by: [id number] Admin: 09/22/19 15:26 Dose: 100 mg Documented by: [id number] Admin: 09/22/19 10:54 Dose: 100 mg Documented by: [id number] Admin: 09/21/19 19:05 Dose: 100 mg Documented by: [id number] Ursodiol (Actigall) 300 mg PO BID [facility] Stop: 10/21/19 20:59 Last Admin: 09/23/19 07:40 Dose: 300 mg Documented by: [id number] Admin: 09/22/19 20:54 Dose: 300 mg Documented by: [id number] Admin: 09/22/19 08:36 Dose: 300 mg Documented by: [id number] Admin: 09/21/19 21:09 Dose: 300 mg Documented by: [id number] Vitamin D (Vitamin D3) 1,000 units PO DAILY [facility] Stop: 10/22/19 08:59 Last Admin: 09/23/19 07:39 Dose: Not Given Documented by: [id number] Admin: 09/22/19 08:38 Dose: Not Given Documented by: [id number] Discontinued Medications Acetaminophen (Tylenol) 1,000 mg PO PREOP [facility] Stop: 09/21/19 18:00 Last Admin: 09/21/19 07:08 Dose: Not Given Documented by: [id number] Bacitracin (Bacitracin) Confirm Administered Dose 50,000 units .ROUTE .STK-MED ONE Stop: 09/21/19 07:07 Last Admin: 09/21/19 08:49 Dose: 50,000 units Documented by: [id number] Bupivacaine HCl/Epinephrine Bitart (Bupivacaine 0.25%-Epi [id number]) Confirm Administered Dose 30 ml .ROUTE .STK-MED ONE Stop: 09/21/19 07:07 Last Admin: 09/21/19 08:50 Dose: 30 ml Documented by: [id number] Celecoxib (Celebrex) 200 mg PO PREOP [facility]EE Stop: 09/21/19 18:00 Last Admin: 09/21/19 07:06 Dose: Not Given Documented by: [id number] Gabapentin (Neurontin) 600 mg PO PREOP [facility] Stop: 09/21/19 18:00 Last Admin: 09/21/19 07:07 Dose: Not Given Documented by: [id number] Hydromorphone HCl (Dilaudid) 0.25 mg IV Q5M PRN PRN Reason: PACU Use Only-Pain Stop: 09/21/19 12:15 Last Admin: 09/21/19 11:25 Dose: 0.25 mg Documented by: [id number] Admin: 09/21/19 11:20 Dose: 0.25 mg Documented by: [id number] Admin: 09/21/19 11:15 Dose: 0.25 mg Documented by: [id number] Admin: 09/21/19 11:10 Dose: 0.25 mg Documented by: [id number] Admin: 09/21/19 11:05 Dose: 0.25 mg Documented by: [id number] Admin: 09/21/19 11:00 Dose: 0.25 mg Documented by: [id number] Admin: 09/21/19 10:55 Dose: 0.25 mg Documented by: [id number] Admin: 09/21/19 10:50 Dose: 0.25 mg Documented by: [id number] Hydromorphone HCl (Dilaudid) Confirm Administered Dose 2 mg .ROUTE .STK-MED ONE Stop: 09/21/19 10:54 Last Admin: 09/21/19 12:16 Dose: Not Given Documented by: [id number] Lactated Ringer's (Lr) 1,000 mls @ 15 mls/hr IV .Q24H [facility] Stop: 09/22/19 05:59 Last Infusion: 09/21/19 07:38 Dose: 0 mls/hr Documented by: [id number] Admin: 09/21/19 07:00 Dose: 15 mls/hr Documented by: [id number] Cefazolin Sodium (Ancef 3000mg) 72.5 mls @ 130 mls/hr IV PREOP [facility]AMEE; Protocol Stop: 09/21/19 18:00 Last Infusion: 09/21/19 12:09 Dose: 0 mls/hr Documented by: [id number] Admin: 09/21/19 07:38 Dose: 130 mls/hr Documented by: [id number] Acetaminophen (Ofirmev) 1,000 mg in 100 mls @ 400 mls/hr IV Q8H PRN PRN Reason: MILD Pain Rating 1,2,3 Stop: 09/22/19 11:58 Last Infusion: 09/21/19 16:33 Dose: 0 mls/hr Documented by: [id number] Admin: 09/21/19 16:10 Dose: 400 mls/hr Documented by: [id number] Cefazolin Sodium (Ancef 2000mg) 2,000 mg in 15 mls @ 3.75 mls/min IV Q8H [facility]; Protocol Stop: 09/22/19 00:03 Last Admin: 09/21/19 23:39 Dose: 3.75 mls/min Documented by: [id number] Admin: 09/21/19 16:11 Dose: 3.75 mls/min Documented by: [id number] Sodium Chloride (Nss 1000ml) 1,000 mls @ 150 mls/hr IV .Q6H40M [facility] Stop: 10/21/19 11:58 Last Infusion: 09/22/19 05:46 Dose: 0 mls/hr Documented by: [id number] Admin: 09/22/19 00:33 Dose: 150 mls/hr Documented by: [id number] Infusion: 09/22/19 00:33 Dose: 150 mls/hr Documented by: [id number] Admin: 09/21/19 19:12 Dose: 150 mls/hr Documented by: [id number] Infusion: 09/21/19 19:12 Dose: 0 mls/hr Documented by: [id number] Admin: 09/21/19 12:31 Dose: 150 mls/hr Documented by: [id number] Ketorolac Tromethamine (Toradol) 15 mg IV Q6H [facility] Stop: 09/22/19 07:01 Last Admin: 09/22/19 06:00 Dose: 15 mg Documented by: [id number] Admin: 09/21/19 23:39 Dose: 15 mg Documented by: [id number] Admin: 09/21/19 19:13 Dose: 15 mg Documented by: [id number] Admin: 09/21/19 12:31 Dose: 15 mg Documented by: [id number] Miscellaneous (Floseal Hemostatic Matrix 10ml) 16 ml TOP ONCE ONE Stop: 09/21/19 10:11 Last Admin: 09/21/19 12:24 Dose: Not Given Documented by: [id number]
[2019-09-23] MEDS: HYDROmorphone INJ 0.5 MG/0.5 ML SYR IV PRN ×2 (09:18→13:38)
--- NOTE | 2019-09-23 10:25 | Orthopedic Progress Note ---
Date of Service September 23, 2019 Assessment & Plan (1) Neurogenic claudication due to lumbar spinal stenosis: At this time we will continue physical therapy monitor her ROBERT output increase her bowel regiment anticipate discharge home in the next few days. Present on Admission?: Yes Subjective Patient complaining mostly of back pain leg symptoms improved. Physical Exam Physical Exam: On exam she is in the chair at the bedside is good strength testing. Appears comfortable. Results & Data Vital Signs (Past 12 Hours) Vital Signs Temp Pulse Pulse Resp BP BP Pulse Ox 09/23/19 07:30 97 09/23/19 07:20 36.6 C 75 17 114/72 98 09/23/19 06:50 37 C 84 18 108/72 97 09/22/19 23:35 95 09/22/19 23:30 36.8 C 79 18 120/74 88 L
[2019-09-23] MEDS: LORazepam 0.5 MG TAB PO PRN (11:36)
[2019-09-23] MEDS: MONTELUKAST SODIUM 10 MG TABLET PO SCH (20:04)
[2019-09-23] MEDS: DOCUSATE SODIUM/SENNA 50/8.6MG TAB PO SCH (20:04)
[2019-09-23] MEDS: CITALOPRAM 40 MG TAB PO SCH (20:04)
[2019-09-24] MEDS: ACETAMINOPHEN 500 MG TAB PO PRN (00:02)
[2019-09-24] MEDS: XYZAL ~ ORDER AWAITING ACTION SCH ×2 (00:04→07:32)
[2019-09-24] MEDS: OXYCODONE HCL IR 5 MG TAB (IMMEDIATE RELEASE) PO PRN ×3 (00:55→10:54)
[2019-09-24] MEDS: POLYETHYLENE (MIRALAX) 17 GM PACK PO SCH (05:42)
[2019-09-24] MEDS: MULTIVITAMIN TAB PO SCH (07:32)
[2019-09-24] MEDS: CYANOCOBALAMIN 500 MCG TABLET (VITAMIN B-12) PO SCH (07:32)
[2019-09-24] MEDS: CHOLECALCIFEROL 1,000 UNITS TAB PO SCH (07:32)
[2019-09-24] MEDS: ursodioL 300 MG CAP PO SCH (07:33)
[2019-09-24] MEDS: LEVOCETIRIZINE DIHYDROCHLORIDE 5 MG PO SCH (07:33)
[2019-09-24] MEDS: GABAPENTIN 800 MG TAB PO SCH (07:34)
[2019-09-24] MEDS: PANTOprazole 40 MG TAB PO SCH (07:34)
[2019-09-24] MEDS ORDERED: Nursing to Pharmacy Communication ONE (08:18)
[2019-09-24] MEDS: TRAMADOL HCL 50 MG TABLET PO PRN (08:39)
--- NOTE | 2019-09-24 08:43 | Hospitalist Progress Note ---
Date of Service September 24, 2019 Assessment & Plan (1) Neurogenic claudication due to lumbar spinal stenosis: POD #3 L3- S1 Lumbar decompression/fusion by Dr. Huerta EBL: 250ml; ROBERT drain 250ml in past 24hrs pain/wound management per ortho activity and therapy as directed by ortho encourage incentive spirometry monitor H&H - stable at 10.8 and 33.4 (pre op 12.2/38.1) (2) Postoperative anemia: ebl 250 ml H/H stable at 10.8 and 33.4 (pre op 12.2/38.1) (3) GERD (gastroesophageal reflux disease): continue PPI (4) Leg edema: Euvolemic continue lasix, renal fxn stable Monitor volume status (5) Anxiety: mood stable continue citalopram (6) Asthma: No signs of exacerbation Albuterol PRN (7) DVT prophylaxis: SCD/TEDS Per ortho Disposition: Per ortho Follow up: PCP PB Lynn upon discharge Patient was seen and examined in collaboration with Dr. Hatfield, please see addendum Thank you for this consultation. We will follow the patient with you during their hospital stay. You [facility] via pager @ [phone]. Supervising Physician Co-Signing Physician Notes Patient seen in her room around 1130. Care coordinated with Rasheeda Coreas PA-C. Doing well postoperatively. No chest pain, cough, SOB, nausea, vomiting. Passing flatus and stool. General- no distress. Lungs- clear Heart- RRR Abd- + BS, soft, nontender Extr- trace edema Labs: Hgb 10.4 A/P: Doing well postop. Pulmonary status stable. Please refer to MIKEY Coreas's documentation for detailed discussion. Subjective Seen and examined in 315.1. Feels well today with improved back pain. Denies numbness or paresthesias in bilateral lower extremities. Tolerating diet well without issue. Had a bowel movement this morning. Participating in therapy. Denies any fever, chills, lightheadedness, visual changes, chest pain, palpitations, shortness of breath, nausea, vomiting, abdominal pain, dysuria or diarrhea. Review of Systems Review of Systems: At least ten systems reviewed and negative except as noted in the HPI. Physical Exam Physical Exam: General Appearance: WD/WN, vitals as above, NAD, sitting in bedside chair, pleasant, conversing easily Head: normocephalic, atraumatic Eyes: normal inspection, PERRL, conjunctivae normal, anicteric sclerae ENT: external ear and nose normal, oropharynx normal Neck: trachea midline, no thyromegaly normal visual inspection Respiratory: lungs clear to auscultation, no wheeze, rales, rhonchi. Normal insp/exp effort, no accessory muscle use Cardiovascular: regular rate, rhythm, no murmur, normal peripheral pulses Chest: normal inspection of chest Abdomen/GI: normal bowel sounds, soft, nontender, no hepatosplenomegaly Extremities/Musculoskelatal: no cyanosis or clubbing, extremities motor strength 5/5. Lumbosacral bandage clean, dry, intact Neurologic: PERRL, CN's II-XI intact bilaterally and moves all extremities Psychiatric: A+Ox3, euthymic affect Skin: no rashes, normal color, warm/dry Results & Data Vital Signs (Past 12 Hours) Vital Signs Temp Pulse Resp BP BP Pulse Ox 09/24/19 06:50 36.6 C 78 18 115/75 94 09/23/19 23:55 92 09/23/19 23:50 37.4 C 100 H 18 120/66 86 L
[2019-09-24 09:07] LABS: Hematocrit (blood only) 33.4 % (37-47); Hemoglobin 10.8 g/dL (12.0-16.0); Mean Corpuscular Hemoglobin 31.6 pg (25-34); Mean Corpuscular Hgb Conc 32.3 g/dL (32-36); Mean Corpuscular Volume 97.7 fL (80-100); Mean Platelet Volume 9.7 fL (7.4-10.4); Platelet Count 297 K/uL (130-400); RDW Coefficient of Variation 12.6 % (11.5-14.5); RDW Standard Deviation 44.7 fL (36.4-46.3); Red Blood Count 3.42 M/uL (4.2-5.4); White Blood Count 10.38 K/uL (4.8-10.8)
[2019-09-24 09:27] LABS: BUN Creatinine Ratio 16.6 (10-20); Calcium 9.1 mg/dl (8.5-10.1); Creatinine Clr Calc Pharmacy 118.2 ml/min; Est GFR (African American) 111.8; Est GFR (Non-African American) 96.5; Potassium 3.8 mmol/L (3.5-5.1)
--- NOTE | 2019-09-24 09:33 | Discharge Summary ---
Date of Service September 24, 2019 Admission HPI Per Admitting Provider This is a 59-year-old female presents with chronic persistent back and bilateral leg pain. After failing extensive course of nonoperative care is here for surgical intervention. Principal Diagnosis Lumbar spinal stenosis with neurogenic claudication Discharge Data Allergies Allergy/AdvReac Type Severity Reaction Status Date / Time Sulfa (Sulfonamide Allergy Severe Hives Verified 09/21/19 06:47 Antibiotics) Cephalosporins Allergy Intermediate HIVES Verified 09/21/19 06:47 ciprofloxacin [From Cipro] Allergy Intermediate hives and Verified 09/21/19 06:47 severe headache rofecoxib AdvReac Severe Vioxx--severe Verified 09/21/19 06:47 joint pain, chest pain adhesive AdvReac Intermediate skin Verified 09/21/19 06:47 breaks out and becomes raw, hives Consultations 09/21/19 11:59 Consult Case Management - Discharge Planning Routine Consult Hospitalist Routine Procedures Performed Operation Date: 09/21/19 07:45 Actual Procedures p L3-S1 Decompression and Fusion with Spinal Cord Monitoring - Jerry Huerta DO Ordered Studies 09/21/19 07:45 FL fluoroscopy <1hr Routine FL lumbar spine 2-3V Routine Hospital Course (1) Neurogenic claudication due to lumbar spinal stenosis: Patient underwent lumbar lumbar decompression fusion tolerance was taken to orthopedic for postoperative. Postop day 1 she was beginning physical therapy progressed to postop day #2 on postop day #3. She was improving with independence. ROBERT drain decreasing probably. Neurologically intact. Subsequently discharged home. Discharge orders instructions from the chart for further review. Total Time Total Time Spent Total Time Spent (In Minutes): 20 minutes Discharge Plan Discharge Items Patient Disposition: Home - Self-Care Reason For Visit: LUMBAR SPINAL STENOSIS W/NEUROGENIC CLAUDICATION Discharge Diagnosis: Lumbar spinal stenosis with neurogenic claudication Activity: As commented below Non-emergency contact: Primary Care Provider Call non-emergency contact if: you have any medication questions Follow-up/Referrals: Lizbeth Barbosa CRNP [Primary Care Provider] - Diet: Regular Addtl Attending Provider Instructions: ACTIVITY RECOMMENDATIONS: SELF CARE INSTRUCTIONS AFTER THORACIC/LUMBAR FUSIONS 1. You may walk to your tolerance. It is good exercise for your legs and back. Expect some back and intermittent leg aches and pains. 2. You may perform "counter-top" level activities (make a sandwich, cherise with a project, etc.). 3. No bending or lifting of more than 10 pounds or back twisting of any nature (roll like a log when turning in bed). 4. You may ride in a car for 20-30 minutes at a time. No driving until after your first visit with your doctor. 5. Frequent changes of position and restricting sitting to 30 minutes at a time will help limit the amount of back spasms and stiffness you may experience. 6. You may discontinue the use of ambulatory aids (cane, crutches, etc.) once your strength and confidence allow. 7. You may strap folding machine operator the shower and let water strike your incision when you arrive home at least once daily. Do not take a tub bath, sit in a hot tub or go into a swimming pool until after your first recheck in the office. SPECIAL CARE INSTRUCTIONS: VERY IMPORTANT TO READ AND REVIEW A. Your surgical incision has been closed with a cosmetic suture under the skin that will dissolve in about 6 weeks. In 14 days, you can use a pair of clean scissors and cut the suture that is left outside of the skin at the ends of your incision. 1. The small skin tapes can be removed 7 days after surgery if they have not fallen off by that point. 2. You may keep the wound open to air as much as possible to promote healing after post-op day number 5 unless told otherwise by your doctor. 3. If you think the wound looks like it is becoming infected (redness or worsening drainage) and/or you are experiencing fever, chill or worsening back pain and muscle spasms, contact the office so that we may evaluate you as soon as possible. B. Complications are uncommon, but please contact us if you have any signs or symptoms of: 1. wound infection (fever higher than 102.5 degrees F, redness, separation of wound, drainage, or increasing pain from the incision) 2. blood clots in legs (pain, swelling, redness and warmth in legs) 3. urinary tract infection (fever higher than 102.5 degrees F, burning upon urination or increased frequency of urination) 4. nerve problems (inability to walk on your toes or heels, numbness, loss of bowel or bladder control) 5. any other symptoms that concern you C. Please call the office at if you have any concerns or questions about your operation or recovery. D. No smoking! Smoking drastically decreases the chance of a solid fusion. E. Do not take any anti-inflammatory medications (Indocin, Advil, Motrin, Aspirin, Naprosyn, etc.) as these may inhibit the chance of a solid fusion. Tylenol is okay to take for pain. MANAGING PAIN AFTER SPINAL SURGERY 1. Narcotic medication is intended for short-term use and will be provided for surgical pain. Surgical pain usually lasts for a period of 4-6 weeks. Narcotic medication includes Percocet, Vicodin, Darvocet, Tylenol #3 or Lortab. 2. Longer-term pain is more appropriately treated with non-narcotic medication such as Tylenol ES. 3. Muscle spasm is not appropriately treated with narcotics. Muscle relaxers such as Soma, Flexeril or Skelaxin can be used along with Tylenol ES. 4. Remember that we all live with some "aches and pains". This is not unusual or uncommon after an injury or as we get older. a. Back pain is expected and may include muscle spasms for 4 to 6 weeks after surgery. The pain should gradually improve. If the pain worsens for no apparent reason, please contact the office. b. Intermittent leg pain may also be experienced and should not be concerned about unless it worsens for no apparent reason. If so, please contact the office. 5. We will provide appropriate medication within the normal guidelines of their prescribed use. We will also be very cautious and aware of potential abuse and extended duration of patients' medication needs. a. Pain medications are for your comfort and to assist with sleep and rest so that the tissue can heal. They are not provided in order to return to normal activity and should not be used through the day. To do so or worsening pain at night can result from ongoing tissue damage and development of tolerance to the prescribed medicine. 6. Please allow 2-3 days to process refills. Prescriptions will not be mailed but must be picked up at the office. FOLLOW UP VISIT: Keep your scheduled follow-up appointment. Any questions, please call the office at . Pending Studies at Discharge: No Stand-Alone Forms: My [employer], Smoking Cessation Medications and [facility] Order Prescriptions: New tramadol 50 mg tablet 50 mg PO Q6H PRN (Reason: pain, moderate) Qty: 30 RF: 0 oxycodone 5 mg tablet 5 mg PO Q6H PRN (Reason: pain, severe) Qty: 30 RF: 0 Continued citalopram 40 mg tablet 40 mg PO HS RF: 0 lorazepam 0.5 mg tablet 0.5 mg SL TID PRN (Reason: anxiety) RF: 0 gabapentin 800 mg tablet 800 mg PO TID RF: 0 diclofenac sodium [Voltaren] 1 % gel 4 gm TOP QID PRN (Reason: Pain) RF: 0 naproxen sodium [Aleve] 220 mg capsule 220 mg PO BID PRN (Reason: Pain) RF: 0 montelukast [Singulair] 10 mg tablet 10 mg PO QPM RF: 0 ursodiol [Actigall] 300 mg capsule 300 mg PO BID RF: 0 furosemide 40 mg tablet 40 mg PO QAM RF: 0 omeprazole 20 mg capsule,delayed release(DR/EC) 20 mg PO BID RF: 0 multivitamin Tablet,Chewable 1 tab PO QAM RF: 0 levocetirizine [Xyzal] 5 mg Tablet 5 mg PO HS RF: 0 cyanocobalamin (vitamin B-12) [Vitamin B-12] 500 mcg Lozenge 500 mcg PO DAILY RF: 0 cholecalciferol (vitamin D3) [Vitamin D3] 1,000 unit Tablet,Chewable 1,000 unit PO DAILY RF: 0 albuterol sulfate [Ventolin HFA] 90 mcg/actuation Hfa Aerosol Inhaler 1 puff INHALATION Q6H PRN (Reason: sob) RF: 0 Discontinued hydrocodone-acetaminophen 10-325 mg tablet 1 tab PO BID PRN (Reason: pain) RF: 0 Discharge Orders: Discharge Order (Routine); Ordered 09/24/19 Ordered By: Jerry Huerta Admission Data Admit Date/Time: 09/21/19 11:03 Attending Provider: Jerry Huerta Admit Provider: Jerry Huerta Primary Care Provider: Lizbeth Barbosa Other Providers: Omari Child
[2019-09-24] MEDS ORDERED: LEVOCETIRIZINE DIHYDROCHLORIDE 5 MG PO SCH (21:00)
--- NOTE | 2019-10-01 11:01 | Coding Query ---
ANEMIA To promote full compliance with coding requirements relating to patient care, physician participation is requested in all cases of patient registrar uncertainty. Please assist us with the question(s) below: Coding Question(s): The record reflects the following clinical findings: POSTOPERATIVE ANEMIA If these findings are indicative of anemia, please specify the known or suspected type by placing an "X" within the parenthesis (x). If other, please document type. Examples are: (x ) Acute Postoperative blood loss anemia ( ) Acute postoperative anemia due to dilutional fluids ( ) Other: (please specify) ( ) Unable to determine Best that you refer this query to the attending physician / surgeon. Thank you. Thank you Destinee RAHMAN
== END 2019-09-24 12:55 | disposition home or self-care (01) | DRG 454 ==
LOC: ASU 06:06 → 3E 11:03

== ENCOUNTER 2019-10-08 15:14 | Inpatient (IN) ==
[2019-10-08] MEDS ORDERED: DAPTOmycin 500 MG in SYRINGE 0 ML IV STA (16:45)
[2019-10-08] MEDS ORDERED: PIPERACILLIN/TAZOBACTAM 4.5 GM/120 ML BAG IV STA (16:53)
[2019-10-08 17:15] LABS: Basophils # (auto) 0.09 K/uL (0-0.2); Eosinophils # (auto) 0.45 K/uL (0-0.5); Eosinophils % (auto) 4.8 %; Hematocrit (blood only) 33.1 % (37-47); Hemoglobin 10.5 g/dL (12.0-16.0); Immature Granulocytes # (auto) 0.06 K/uL (0.00-0.02); Immature Granulocytes % (auto) 0.6 %; Lymphocytes # (auto) 2.24 K/uL (1.2-3.4); Lymphocytes % (auto) 24.1 %; Mean Corpuscular Hemoglobin 30.4 pg (25-34); Mean Corpuscular Hgb Conc 31.7 g/dL (32-36); Mean Corpuscular Volume 95.9 fL (80-100); Mean Platelet Volume 8.8 fL (7.4-10.4); Monocytes # (auto) 0.83 K/uL (0.11-0.59); Monocytes % (auto) 8.9 %; Neutrophils # (auto) 5.61 K/uL (1.4-6.5); Neutrophils % (auto) 60.6 %; Platelet Count 596 K/uL (130-400); RDW Coefficient of Variation 12.4 % (11.5-14.5); RDW Standard Deviation 43.2 fL (36.4-46.3); Red Blood Count 3.45 M/uL (4.2-5.4); White Blood Count 9.28 K/uL (4.8-10.8)
[2019-10-08 17:27] LABS: INR 1.1 (0.9-1.1); Partial Thromboplastin Ratio 1.2; Partial Thromboplastin Time 31.6 Seconds (21.0-31.0); Prothrombin Time 10.9 Seconds (9.0-12.0)
[2019-10-08 17:33] LABS: Albumin Level 2.8 gm/dl (3.4-5.0); BUN Creatinine Ratio 12.9 (10-20); Calcium 8.5 mg/dl (8.5-10.1); Est GFR (African American) 115.5; Est GFR (Non-African American) 99.6; Potassium 3.6 mmol/L (3.5-5.1)
[2019-10-08 17:35] LABS: Albumin Globulin Ratio 0.6 (0.9-2); Bilirubin,Total 0.3 mg/dl (0.2-1); Globulin 4.9 gm/dl (2.5-4.0); Total Protein 7.7 gm/dl (6.4-8.2)
--- NOTE | 2019-10-08 17:41 | History & Physical Report ---
Date of Service October 08, 2019 Assessment & Plan (1) Infection of lumbar spine: Lungs this patient and her daughter reviewing her presentation. I would like to admit the patient begin IV antibiotics. It appears that this is most likely a superficial infection however we will obtain a CAT scan to look for any evidence of a deeper wound infection. Fortunately she does not present with any neurologic decline in suggesting this is superficial nature only. I discussed that we may consider an I&D of the superficial tissue tomorrow. She understands agrees. She will made n.p.o. after midnight. Cultures have been obtained and pending. Present on Admission?: Yes History of Present Illness Chief Complaint: Back pain possible wound infection Primary Care Provider: Libzeth Barbosa This is a 59-year-old female well-known to me status post lumbar decompression and fusion approximately 2 and half weeks ago. She been doing well but noticed some erythema in the proximal portion of her lumbar incision. This is progressed over the past few days. She notes some fevers and chills. She sub sequently presents the emergency room with these complaints. She denies any neurologic issues. She denies any leg pain. Back pain is relatively controlled with occasional tramadol and oxycodone. She does have a history of dependency. She has been ambulating about the home with a cane. Her neurogenic claudicatory symptoms are overall improved. Allergies Allergy/AdvReac Type Severity Reaction Status Date / Time Sulfa (Sulfonamide Allergy Severe Hives Verified 09/21/19 06:47 Antibiotics) Cephalosporins Allergy Intermediate HIVES Verified 09/21/19 06:47 ciprofloxacin [From Cipro] Allergy Intermediate hives and Verified 09/21/19 06:47 severe headache rofecoxib AdvReac Severe Vioxx--severe Verified 09/21/19 06:47 joint pain, chest pain adhesive AdvReac Intermediate skin Verified 09/21/19 06:47 breaks out and becomes raw, hives Home Medications Home Medications Medication Instructions Recorded Confirmed Type citalopram 40 mg tablet 40 mg PO HS 05/07/19 09/21/19 History diclofenac sodium 1 % topical gel 4 gm TOP QID PRN 05/07/19 09/21/19 History furosemide 40 mg tablet 40 mg PO QAM 05/07/19 09/21/19 History gabapentin 800 mg tablet 800 mg PO TID 05/07/19 09/21/19 History lorazepam 0.5 mg tablet 0.5 mg SL TID PRN tab 05/07/19 09/21/19 History montelukast 10 mg tablet 10 mg PO QPM 05/07/19 09/21/19 History naproxen sodium 220 mg capsule 220 mg PO BID PRN 05/07/19 09/21/19 History omeprazole 20 mg capsule,delayed 20 mg PO BID cap 05/07/19 09/21/19 History release ursodiol 300 mg capsule 300 mg PO BID 05/07/19 09/21/19 History albuterol sulfate [Ventolin HFA] 1 puff INHALATION Q6H PRN 09/02/19 09/21/19 History cholecalciferol (vitamin D3) 1,000 unit PO DAILY 09/02/19 09/21/19 History [Vitamin D3] cyanocobalamin (vitamin B-12) 500 mcg PO DAILY 09/02/19 09/21/19 History [Vitamin B-12] levocetirizine [Xyzal] 5 mg PO HS 09/02/19 09/21/19 History multivitamin 1 tab PO QAM 09/02/19 09/21/19 History oxycodone 5 mg PO Q6H PRN #30 tab 09/22/19 Rx tramadol 50 mg PO Q6H PRN #30 tab 09/22/19 Rx Past Med/Surg History Social History Preferred Language: Cameroonian Communication Ability: Effective Visual Impairment: Limited Hearing Ability: Normal Internal Medicine Doctor Required: No Beliefs That Will Affect Care: None marital status: Current Living Situation: Spouse Current Living Situation Comment: cares for mother current occupational status: employed 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 Is modestly tender to palpation. She is excellent strength detailed testing bilateral extremities. She does not appear to be in acute distress. Results & Data Vital Signs (Past 12 Hours) Vital Signs Temp Pulse Pulse Resp BP BP Pulse Ox 10/08/19 17:14 70 18 129/66 96 10/08/19 15:47 36.7 C 75 20 156/78 H 95
[2019-10-08] MEDS ORDERED: OXYCODONE HCL IR 5 MG TAB (IMMEDIATE RELEASE) PO STA (18:03)
[2019-10-08] MEDS ORDERED: IOVERSOL 100ml IV PRN (18:14)
[2019-10-08] MEDS ORDERED: HYDROmorphone INJ 0.5 MG/0.5 ML SYR IV PRN (18:40)
[2019-10-08] MEDS ORDERED: LORazepam 1 MG/2 ML VIAL IV PRN (18:40)
[2019-10-08] MEDS ORDERED: PROMETHAZINE HCL 12.5 MG in SODIUM CHLORIDE 0.9% 50 ML IV PRN (18:40)
[2019-10-08] MEDS ORDERED: ONDANSETRON 4 MG OD TAB PO PRN (18:40)
[2019-10-08] MEDS ORDERED: ONDANSETRON INJ 2 MG/ML 2 ML VIAL IV PRN (18:40)
[2019-10-08] MEDS ORDERED: HYDROmorphone INJ 1 MG/ML SYRINGE IV PRN (18:40)
[2019-10-08] MEDS ORDERED: METOCLOPRAMIDE HCL INJ 5 MG/ML 2 ML VIAL IV PRN (18:40)
--- NOTE | 2019-10-08 18:49 | CT Scan Report ---
CT SCAN OF THE LUMBAR SPINE WITH IV CONTRAST CLINICAL HISTORY: Postoperative infection. Surgery performed 09/21/2019. COMPARISON STUDY: Abdominal CT dated 09/09/2019. MRI of the lumbar spine dated 05/07/2019. TECHNIQUE: Following the IV administration of 94 cc of Optiray 320, CT scan of the lumbar spine is pe rformed from the lower thoracic spine to the sacrum. Images are reviewed in the axial, sagittal, and coronal planes. IV contrast was administered without complication. A dose lowering technique was util ized adhering to the principles of ALARA. The examination is degraded by streak artifact from metalli c spinal orthopedic hardware. The examination is also degraded by large body habitus with significant streak artifact from the body wall abutting the CT gantry. CT DOSE: 1039.56 mGy.cm FINDINGS: The skeletal structures are osteopenic. Vertebral body height and alignment are maintained throughout the lumbar spine. Anterior and lateral marginal osteophytes are seen throughout. There are healing transverse process fractures on the right at L3 and L4. There has been laminectomy and poste rior fusion seen from L3 -S1. Interpedicular screws are present at all levels. The orthopedic hardwar e appears intact. There has been discectomy at L4-L5 and L5-S1. Advanced disc space narrowing with en dplate sclerosis is seen at L3-L4. Moderate to advanced disc space narrowing is also seen at L1-L2 an d L2-L3. There is no evidence of large disc herniation or high-grade central canal stenosis by CT. No lytic or blastic lesion is seen. The visualized sacrum and bony pelvis appear intact. Mild degenerat fabiola sclerosis is noted in the sacroiliac joints. Postoperative change is seen in the posterior parasp inous soft tissues. There is an approximately 8 x 8.5 x 5 cm fluid collection within the posterior mi dline at the operative level. There is evidence of gastric bypass surgery. The visualized retroperito glenna structures are normal as visualized. IMPRESSION: 1. There has been interval postoperative change from lumbar spinal fusion seen from L3-S1. 2. The orthopedic hardware appears intact. 3. There are healing transverse process fractures as above, likely related to recent surgery. 4. There is a large fluid collection identified in the midline posterior soft tissues at the operativ e levels. This is pathologically indeterminant and could represent a seroma/liquefied hematoma given recent surgery. The sterility of this collection cannot be assessed by CT and infection would be impo ssible to exclude. 5. Additional findings as above. ACT 112: Negative or not required by law. Dictated: 10/08/2019 6:25 PM Transcribed: 10/08/2019 6:45 PM Marguerite [id number] [email or web address] Electronically signed by: Stefano Tucker M.D. 10/08/2019 6:48 PM
[2019-10-08] MEDS: TRAMADOL HCL 50 MG TABLET PO PRN (19:32)
--- NOTE | 2019-10-08 19:36 | Emergency Department Note ---
History of Present Illness General Chief complaint: Back Injury/Pain Stated complaint: HAD BACK SURGERY 09/21 Time Seen by Provider: 10/08/19 16:26 History of Present Illness Maximum Pain Intensity: 6 59-year-old female who presents to the emergency department with complaint of redness, swelling and discomfort to the lower back. The patient underwent back surgery on 09/21/[address] Jones. The patient's usual postop appointment did show a collection of fluid at this site with a scab formation. It was felt that this was due to a collection of fluid after the surgery. The patient reports that her swelling and discomfort has increasingly worsened over the past few days. The family became concerned for infection because of redness. They did call Dr. Huerta's office today and advised that they did not have any providers in the office, and that Dr. Huerta was performing surgery at the hospital. They recommend that she come to the emergency department for further evaluation. The patient has been taking oxycodone for pain, and currently rates her discomfort a 5 out of 10. The patient has had chills, but has not checked her temperature. She denies any paresthesias or numbness of the lower extremities, and also denies any abdominal pain, chest pain or shortness of breath. Home Medications Home Medications Medication Instructions Recorded Confirmed Type citalopram 40 mg tablet 40 mg PO HS 05/07/19 10/08/19 History diclofenac sodium 1 % topical gel 4 gm TOP QID PRN 05/07/19 10/08/19 History furosemide 40 mg tablet 40 mg PO QAM 05/07/19 10/08/19 History gabapentin 800 mg tablet 800 mg PO TID 05/07/19 10/08/19 History lorazepam 0.5 mg tablet 0.5 mg SL TID PRN tab 05/07/19 10/08/19 History montelukast 10 mg tablet 10 mg PO QPM 05/07/19 10/08/19 History naproxen sodium 220 mg capsule 220 mg PO BID PRN 05/07/19 10/08/19 History omeprazole 20 mg capsule,delayed 20 mg PO BID cap 05/07/19 10/08/19 History release ursodiol 300 mg capsule 300 mg PO BID 05/07/19 10/08/19 History albuterol sulfate [Ventolin HFA] 1 puff INHALATION Q6H PRN 09/02/19 10/08/19 History cholecalciferol (vitamin D3) 1,000 unit PO DAILY 09/02/19 10/08/19 History [Vitamin D3] cyanocobalamin (vitamin B-12) 500 mcg PO DAILY 09/02/19 10/08/19 History [Vitamin B-12] levocetirizine [Xyzal] 5 mg PO HS 09/02/19 10/08/19 History multivitamin 1 tab PO QAM 09/02/19 10/08/19 History oxycodone 5 mg PO Q6H PRN #30 tab 09/22/19 10/08/19 Rx tramadol 50 mg PO Q6H PRN #30 tab 09/22/19 10/08/19 Rx clindamycin HCl 300 mg PO TID 10/08/19 10/08/19 History Allergies Allergy/AdvReac Type Severity Reaction Status Date / Time Sulfa (Sulfonamide Allergy Severe Hives Verified 09/21/19 06:47 Antibiotics) Cephalosporins Allergy Intermediate HIVES Verified 09/21/19 06:47 ciprofloxacin [From Cipro] Allergy Intermediate hives and Verified 09/21/19 06:47 severe headache rofecoxib AdvReac Severe Vioxx--severe Verified 09/21/19 06:47 joint pain, chest pain adhesive AdvReac Intermediate skin Verified 09/21/19 06:47 breaks out and becomes raw, hives Past Med/Surg History Family History Mother FHx: breast cancer Brother Family history of diabetes mellitus Social History Preferred Language: Japanese Communication Ability: Effective Visual Impairment: Limited Hearing Ability: Normal Seed Yeast Operator Required: No Beliefs That Will Affect Care: None marital status: Current Living Situation: Spouse Current Living Situation Comment: cares for mother current occupational status: employed 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 Other Information That Helps Us Care for You: No Feels Safe at Home: Yes Safety Concerns: Feels Safe At This Time Smoking Status: Former smoker Tobacco Type: cigarettes ; Second Hand Exposure: Yes ; Hx Alcohol Use: No Hx Substance Use: No Review of Systems 10 system review was performed and was negative except for pertinent positives and negatives as indicated in history of present illness Physical Exam Vital Signs Vital Signs - 24 hr 10/08/19 15:47 10/08/19 17:14 Temperature 36.7 C Temperature Source Oral Pulse Rate 75 Pulse Rate [Left Finger] 70 Respiratory Rate 20 18 Respiratory Effort / Characteristics Non-Labored Spontaneous Respiratory Depth Normal Respiratory Pattern Regular Blood Pressure 156/78 H Blood Pressure [Left Arm] 129/66 Blood Pressure Mean 104 Blood Pressure Mean [Left Arm] 87 Pulse Oximetry 95 96 Oxygen Delivery Method Room Air Sepsis Recent Fever Within 48 Hours Yes Sepsis Action Taken by Nursing No Action Required CONSTITUTIONAL: Morbidly appearing female, alert and oriented X 3. Patient appears in mild discomfort. HEENT: Normocephalic, atraumatic. Pupils equal, round and reactive. No scleral icterus or conjunctival injection/pallor. NECK: Full active range of motion without discomfort. RESPIRATORY: Clear to auscultation bilaterally with no wheezing, crackles, rhonchi or stridor. CARDIOVASCULAR: Regular rate and rhythm with no murmurs, rubs or gallops. GASTROINTESTINAL: Bowel sounds present in all quadrants. Abdomen is protube rant but soft and nontender to palpation. MUSCULOSKELETAL: Examination of the lower back shows notable induration and erythema extending out from the midline. Surgical incision does show mild fluctuance. Patient has no tenderness to palpation of the lower thoracic spine or paraspinous muscles. Negative logroll and negative straight leg raise. INTEGUMENTARY: No rash or other significant dermatologic conditions noted. HEMATOLOGIC: No ecchymosis or petechiae. PSYCHIATRIC: Positive affect. NEUROLOGIC: No focal neurologic deficits noted. Lower extremities are sensory intact. Course Course Patient history and physical exam were performed. Nurse's notes were reviewed. Vital signs were reviewed and were normal. I had a great concern for cellulitis, possibly underlying abscess. I immediately discussed the case with my attending physician, Dr. Lopez, as well as our pharmacist regarding antibiotic treatment for this infection. I also spoke with Dr. Huerta, who came to the emergency department for evaluation, and agrees with admission. IV access was established, and labs were drawn and reviewed to show no leukocytosis. Patient does have a thrombocytosis. Hemoglobin is stable at 10.5, and comparable to the patient's labs over the past month. Sed rate is greater than 90. PTT was elevated at 31.6, otherwise PT and INR are normal. Lactate was normal. Blood cultures x2 were collected. The patient was started on IV Zosyn and daptomycin as recommended by our pharmacist. CT of the lumbar spine with IV contrast does show a fluid flexion concerning for abscess. This information was relayed to Dr. Huerta, who indicated that he would likely take the patient to the OR tomorrow for I&D procedure. Please see his dictation for further treatment and final disposition. Administered Medications Acetaminophen (Tylenol) 1,000 mg PO Q8H PRN PRN Reason: MILD Pain Rating 1,2,3 Stop: 11/07/19 18:39 Last Admin: 10/09/19 01:42 Dose: 1,000 mg Documented by: [id number] Citalopram Hydrobromide (Celexa) 40 mg PO HS [facility] Stop: 11/07/19 20:59 Last Admin: 10/08/19 21:41 Dose: 40 mg Documented by: [id number] Cyanocobalamin (Vitamin B-12) 500 mcg PO DAILY JAMEE Stop: 11/08/19 08:59 Last Admin: 10/09/19 08:43 Dose: 500 mcg Documented by: [id number] Docusate Sodium (Colace) 100 mg PO BID JAMEE Stop: 11/07/19 20:59 Last Admin: 10/09/19 08:44 Dose: 100 mg Documented by: [id number] Admin: 10/08/19 21:40 Dose: Not Given Documented by: [id number] Furosemide (Lasix) 40 mg PO QAM [facility] Stop: 11/08/19 08:59 Last Admin: 10/09/19 08:43 Dose: 40 mg Documented by: [id number] Gabapentin (Neurontin) 800 mg PO TID JAMEE Stop: 11/07/19 20:59 Last Admin: 10/09/19 08:43 Dose: 800 mg Documented by: [id number] Admin: 10/08/19 21:41 Dose: 800 mg Documented by: [id number] Piperacillin Sod/Tazobactam (Sod 4.5 gm/ Dextrose) 120 mls @ 30 mls/hr IV Q8H [facility]; Protocol Stop: 11/19/19 21:59 Last Infusion: 10/09/19 09:13 Dose: 0 mls/hr Documented by: [id number] Admin: 10/09/19 05:29 Dose: 30 mls/hr Documented by: [id number] Infusion: 10/09/19 01:39 Dose: 0 mls/hr Documented by: [id number] Admin: 10/08/19 21:40 Dose: 30 mls/hr Documented by: [id number] Ioversol (Optiray 320 100ml) 94 ml IV ONCE PRN PRN Reason: Interaction Checking Stop: 10/12/19 18:13 Last Admin: 10/08/19 18:15 Dose: 94 ml Documented by: [id number] Lorazepam (Ativan) 1 mg PO Q6H PRN PRN Reason: Anxiety/spasms Stop: 11/07/19 18:39 Last Admin: 10/09/19 10:37 Dose: 1 mg Documented by: [id number] Admin: 10/08/19 20:53 Dose: 1 mg Documented by: [id number] Miscellaneous (Order Awaiting Action) 1 ea N/A QS [facility] Stop: 11/08/19 00:00 Last Admin: 10/09/19 08:06 Dose: Not Given Documented by: [id number] Admin: 10/08/19 23:33 Dose: Not Given Documented by: [id number] Montelukast Sodium (Singulair) 10 mg PO QPM [facility] Stop: 11/07/19 20:59 Last Admin: 10/08/19 21:40 Dose: 10 mg Documented by: [id number] Multivitamins (Multivitamin Tab) 1 tab PO QAM [facility] Stop: 11/08/19 08:59 Last Admin: 10/09/19 08:44 Dose: 1 tab Documented by: [id number] Oxycodone HCl (Roxicodone Immediate Rel) 5 - 10 mg PO Q4H PRN PRN Reason: Moderate-Severe Pain Stop: 10/22/19 18:39 Last Admin: 10/09/19 08:42 Dose: 10 mg Documented by: [id number] Admin: 10/09/19 04:49 Dose: 10 mg Documented by: [id number] Admin: 10/08/19 21:54 Dose: 10 mg Documented by: [id number] Pantoprazole Sodium (Protonix) 40 mg PO BID [facility] Stop: 11/07/19 20:59 Last Admin: 10/09/19 08:44 Dose: 40 mg Documented by: [id number] Admin: 10/08/19 21:41 Dose: 40 mg Documented by: [id number] Tramadol HCl (Ultram) 50 - 100 mg PO Q4H PRN PRN Reason: Moderate-Severe Pain Stop: 11/07/19 18:39 Last Admin: 10/08/19 19:32 Dose: 50 mg Documented by: [id number] Ursodiol (Actigall) 300 mg PO BID JAMEE Stop: 11/07/19 20:59 Last Admin: 10/09/19 08:44 Dose: 300 mg Documented by: [id number] Admin: 10/08/19 21:41 Dose: 300 mg Documented by: [id number] Vitamin D (Vitamin D3) 1,000 units PO DAILY JAMEE Stop: 11/08/19 08:59 Last Admin: 10/09/19 08:43 Dose: 1,000 units Documented by: [id number] Discontinued Medications Daptomycin 500 mg/ Syringe 10 mls @ 5 mls/min IV NOW STA; Protocol Stop: 10/08/19 16:46 Last Admin: 10/08/19 17:17 Dose: 5 mls/min Documented by: [id number] Piperacillin Sod/Tazobactam Sod (Zosyn) 4.5 gm in 120 mls @ 240 mls/hr IV NOW STA Stop: 10/08/19 17:22 Last Infusion: 10/08/19 17:56 Dose: 0 mls/hr Documented by: [id number] Admin: 10/08/19 17:17 Dose: 240 mls/hr Documented by: [id number] Oxycodone HCl (Roxicodone Immediate Rel) 5 mg PO NOW STA Stop: 10/08/19 18:04 Last Admin: 10/08/19 18:25 Dose: 5 mg Documented by: [id number] Medical Decision Making Medical Records Attestation: I reviewed the patient's medical records. Home Medications Current Medication List: was personally reviewed by me Laboratory Data Attestation: I reviewed the patient's lab results. Result diagrams: 10/09/19 05:28 10/09/19 05:28 Lab Results 10/08/19 10/08/19 10/08/19 Range/Units 17:05 17:05 17:05 WBC 9.28 (4.8-10.8) K/uL RBC 3.45 L (4.2-5.4) M/uL Hgb 10.5 L (12.0-16.0) g/dL Hct 33.1 L (37-47) % MCV 95.9 (80-100) fL MCH 30.4 (25-34) pg MCHC 31.7 L (32-36) g/dL RDW Std Deviation 43.2 (36.4-46.3) fL RDW Coeff of Konstantin 12.4 (11.5-14.5) % Plt Count 596 H (130-400) K/uL MPV 8.8 (7.4-10.4) fL Immature Gran % (Auto) 0.6 % Neut % (Auto) 60.6 % Lymph % (Auto) 24.1 % [place] % (Auto) 8.9 % Eos % (Auto) 4.8 % Baso % (Auto) 1.0 % Immature Gran # (Auto) 0.06 H (0.00-0.02) K/uL Neut # (Auto) 5.61 (1.4-6.5) K/uL Lymph # (Auto) 2.24 (1.2-3.4) K/uL [place] # (Auto) 0.83 H (0.11-0.59) K/uL Eos # (Auto) 0.45 (0-0.5) K/uL Baso # (Auto) 0.09 (0-0.2) K/uL ESR (0-21) mm/hr PT 10.9 (9.0-12.0) Seconds INR 1.1 (0.9-1.1) APTT 31.6 H (21.0-31.0) Seconds PTT Ratio 1.2 Sodium 139 (136-145) mmol/L Potassium 3.6 (3.5-5.1) mmol/L Chloride 103 (98-107) mmol/L Carbon Dioxide 33 H (21-32) mmol/L Anion Gap 3.0 (3-11) BUN 8 (7-18) mg/dl Creatinine 0.59 L (0.6-1.2) mg/dl Est Cr Clr Drug Dosing 133.0 ml/min Est GFR ( Amer) 115.5 Est GFR (Non-Af Amer) 99.6 BUN/Creatinine Ratio 12.9 (10-20) Glucose 88 (70-99) mg/dl Lactate (0.4-2.0) mmol/L Calcium 8.5 (8.5-10.1) mg/dl Total Bilirubin 0.3 (0.2-1) mg/dl AST 12 L (15-37) U/L ALT 9 L (12-78) U/L Alkaline Phosphatase 124 H (45-117) U/L Total Protein 7.7 (6.4-8.2) gm/dl Albumin 2.8 L (3.4-5.0) gm/dl Globulin 4.9 H (2.5-4.0) gm/dl Albumin/Globulin Ratio 0.6 L (0.9-2) 10/08/19 10/08/19 Range/Units 17:05 17:05 WBC (4.8-10.8) K/uL RBC (4.2-5.4) M/uL Hgb (12.0-16.0) g/dL Hct (37-47) % MCV (80-100) fL MCH (25-34) pg MCHC (32-36) g/dL RDW Std Deviation (36.4-46.3) fL RDW Coeff of Konstantin (11.5-14.5) % Plt Count (130-400) K/uL MPV (7.4-10.4) fL Immature Gran % (Auto) % Neut % (Auto) % Lymph % (Auto) % [place] % (Auto) % Eos % (Auto) % Baso % (Auto) % Immature Gran # (Auto) (0.00-0.02) K/uL Neut # (Auto) (1.4-6.5) K/uL Lymph # (Auto) (1.2-3.4) K/uL [place] # (Auto) (0.11-0.59) K/uL Eos # (Auto) (0-0.5) K/uL Baso # (Auto) (0-0.2) K/uL ESR > 90 H (0-21) mm/hr PT (9.0-12.0) Seconds INR (0.9-1.1) APTT (21.0-31.0) Seconds PTT Ratio Sodium (136-145) mmol/L Potassium (3.5-5.1) mmol/L Chloride (98-107) mmol/L Carbon Dioxide (21-32) mmol/L Anion Gap (3-11) BUN (7-18) mg/dl Creatinine (0.6-1.2) mg/dl Est Cr Clr Drug Dosing ml/min Est GFR ( Amer) Est GFR (Non-Af Amer) BUN/Creatinine Ratio (10-20) Glucose (70-99) mg/dl Lactate 0.8 (0.4-2.0) mmol/L Calcium (8.5-10.1) mg/dl Total Bilirubin (0.2-1) mg/dl AST (15-37) U/L ALT (12-78) U/L Alkaline Phosphatase (45-117) U/L Total Protein (6.4-8.2) gm/dl Albumin (3.4-5.0) gm/dl Globulin (2.5-4.0) gm/dl Albumin/Globulin Ratio (0.9-2) Imaging Data Attestation: I personally reviewed and interpreted this imaging study as follows: My Impression: My interpretation of a CT scan of the lumbar spine with IV contrast shows evidence for a fluid collection near the midline, as well as expected postoperative changes. Radiologist report was also reviewed. Radiologist's Impression: CT SCAN OF THE LUMBAR SPINE WITH IV CONTRAST CLINICAL HISTORY: Postoperative infection. Surgery performed 09/21/2019. COMPARISON STUDY: Abdominal CT dated 09/09/2019. MRI of the lumbar spine dated 05/07/2019. TECHNIQUE: Following the IV administration of 94 cc of Optiray 320, CT scan of the lumbar spine is performed from the lower thoracic spine to the sacrum. Images are reviewed in the axial, sagittal, and coronal planes. IV contrast was administered without complication. A dose lowering technique was utilized adhering to the principles of ALARA. The examination is degraded by streak artifact from metallic spinal orthopedic hardware. The examination is also degraded by large body habitus with significant streak artifact from the body wall abutting the CT gantry. CT DOSE: 1039.56 mGy.cm FINDINGS: The skeletal structures are osteopenic. Vertebral body height and alignment are maintained throughout the lumbar spine. Anterior and lateral marginal osteophytes are seen throughout. There are healing transverse process fractures on the right at L3 and L4. There has been laminectomy and posterior fusion seen from L3 -S1. Interpedicular screws are present at all levels. The orthopedic hardware appears intact. There has been discectomy at L4-L5 and L5- S1. Advanced disc space narrowing with endplate sclerosis is seen at L3-L4. Moderate to advanced disc space narrowing is also seen at L1-L2 and L2-L3. There is no evidence of large disc herniation or high-grade central canal stenosis by CT. No lytic or blastic lesion is seen. The visualized sacrum and bony pelvis appear intact. Mild degenerative sclerosis is noted in the sacroiliac joints. Postoperative change is seen in the posterior paraspinous soft tissues. There is an approximately 8 x 8.5 x 5 cm fluid collection within the posterior midline at the operative level. There is evidence of gastric bypass surgery. The visualized retroperitoneal structures are normal as visualized. IMPRESSION: 1. There has been interval postoperative change from lumbar spinal fusion seen from L3-S1. 2. The orthopedic hardware appears intact. 3. There are healing transverse process fractures as above, likely related to recent surgery. 4. There is a large fluid collection identified in the midline posterior soft tissues at the operative levels. This is pathologically indeterminant and could represent a seroma/liquefied hematoma given recent surgery. The sterility of this collection cannot be assessed by CT and infection would be impossible to exclude. 5. Additional findings as above. Blood Pressure Blood Pressure Findings: Elevated blood pressure Blood Pressure Disposition: elevated BP felt to be situational MDM Narrative Patient presents the emergency department with history and clinical exam findings concerning for cellulitis versus abscess. There is some mild fluctuance at the site, and CT imaging does show a collection of fluid. The patient will undergo I&D procedure tomorrow by Dr. Huerta. The patient is currently afebrile and does not have any leukocytosis or lactate to suggest sepsis. Impression & Plan Post-operative wound abscess, S/P lumbar spinal fusion Discharge Plan Visit Data *Final* Discharge Date/Time: 10/08/19 18:31 Chief Complaint: Back Injury/Pain Stated Complaint: HAD BACK SURGERY 09/21 ED Provider: Rodrigue Lopez ED Midlevel Provider: Isra Gonzalez Discharge Problem: Post-operative wound abscess, S/P lumbar spinal fusion Patient Disposition: Admitted As Inpatient Discharge Instructions Interventions: ED Discharge Assessment Last Done: 10/08/19 18:31
[2019-10-08] MEDS ORDERED: DAPTOMYCIN CONSULT ACTIVE PRN (19:39)
[2019-10-08] MEDS ORDERED: PIPERACILL/TAZOBAC CONSULT ACTIVE PRN (19:40)
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
[2019-10-08] MEDS: LORazepam 1 MG TAB PO PRN (20:53)
[2019-10-08] MEDS: DOCUSATE SODIUM 100 MG CAP PO SCH (21:40)
[2019-10-08] MEDS: MONTELUKAST SODIUM 10 MG TABLET PO SCH (21:40)
[2019-10-08] MEDS: PIPERACILLIN/TAZOBACTAM 4.5 GM in DEXTROSE 5% 100 ML IV SCH (21:40)
[2019-10-08] MEDS: PANTOprazole 40 MG TAB PO SCH (21:41)
[2019-10-08] MEDS: GABAPENTIN 800 MG TAB PO SCH (21:41)
[2019-10-08] MEDS: URSODIOL 300 MG CAP PO SCH (21:41)
[2019-10-08] MEDS: CITALOPRAM 40 MG TAB PO SCH (21:41)
[2019-10-08] MEDS: OXYCODONE HCL IR 5 MG TAB (IMMEDIATE RELEASE) PO PRN (21:54)
[2019-10-09] MEDS: ACETAMINOPHEN 500 MG TAB PO PRN (01:42)
[2019-10-09] MEDS: OXYCODONE HCL IR 5 MG TAB (IMMEDIATE RELEASE) PO PRN ×3 (04:49→21:41)
[2019-10-09] MEDS: PIPERACILLIN/TAZOBACTAM 4.5 GM in DEXTROSE 5% 100 ML IV SCH ×3 (05:29→21:39)
[2019-10-09 05:55] LABS: Hematocrit (blood only) 30.9 % (37-47); Hemoglobin 9.7 g/dL (12.0-16.0); Mean Corpuscular Hemoglobin 30.6 pg (25-34); Mean Corpuscular Hgb Conc 31.4 g/dL (32-36); Mean Corpuscular Volume 97.5 fL (80-100); Mean Platelet Volume 8.7 fL (7.4-10.4); Platelet Count 570 K/uL (130-400); RDW Coefficient of Variation 12.2 % (11.5-14.5); Red Blood Count 3.17 M/uL (4.2-5.4)
[2019-10-09 06:27] LABS: BUN Creatinine Ratio 11.3 (10-20); Calcium 8.5 mg/dl (8.5-10.1); Creatinine Clr Calc Pharmacy 120.5 ml/min; Est GFR (African American) 111.8; Est GFR (Non-African American) 96.5; Potassium 3.6 mmol/L (3.5-5.1)
[2019-10-09] MEDS: CHOLECALCIFEROL 1,000 UNITS TAB PO SCH (08:43)
[2019-10-09] MEDS: FUROSEMIDE 40 MG TAB PO SCH (08:43)
[2019-10-09] MEDS: CYANOCOBALAMIN 500 MCG TABLET (VITAMIN B-12) PO SCH (08:43)
[2019-10-09] MEDS: GABAPENTIN 800 MG TAB PO SCH ×3 (08:43→20:45)
[2019-10-09] MEDS: DOCUSATE SODIUM 100 MG CAP PO SCH ×2 (08:44→20:45)
[2019-10-09] MEDS: PANTOprazole 40 MG TAB PO SCH ×2 (08:44→20:45)
[2019-10-09] MEDS: MULTIVITAMIN TAB PO SCH (08:44)
[2019-10-09] MEDS: URSODIOL 300 MG CAP PO SCH ×2 (08:44→20:45)
--- NOTE | 2019-10-09 10:15 | Orthopedic Progress Note ---
Date of Service October 09, 2019 Assessment & Plan (1) Post-operative wound abscess: This time I reviewed the patient's CAT scan findings with her. She understands we are going to proceed with the I&D of the lumbar spine today. She remain n.p.o. Present on Admission?: Yes Subjective Patient's Physical Exam Physical Exam: She is neurologically intact. Results & Data Vital Signs (Past 12 Hours) Vital Signs Temp Pulse Resp BP Pulse Ox 10/09/19 07:10 36.5 C 69 16 110/73 94 10/08/19 23:18 36.7 C 85 16 102/63 93
--- NOTE | 2019-10-09 10:16 | Hospitalist Progress Note ---
Date of Service October 09, 2019 Assessment & Plan (1) Infection of lumbar spine: S/P L3-S1 decompression and fusion on 09/21 CT lumbar spine shows fluid collection at the operative levels Reported chills prior to admission. Has no leukocytosis. Currently on Zosyn and daptomycin. We will follow-up blood cultures We will follow up operative findings. (2) Leg edema: Trace edema on exam. Continue home Lasix (3) GERD (gastroesophageal reflux disease): Continue PPI (4) Anxiety: Continue citalopram (5) Asthma: Stable, no signs of acute exacerbation Does not use routine inhalers at home (6) DVT prophylaxis: Teds/SCDs as per spine orthopedics We will follow the patient with you during their hospital stay. You [facility] reach [facility] or [facility] via pager @ [phone]. Subjective Patient seen this morning. Reports low back pain. Reported chills over the past couple of days but has not had chills since admission. Denied any fevers, nausea, vomiting. Denied any lower extremity weakness, saddle anesthesia, bowel or bladder incontinence. Denied any abdominal pain, constipation or diarrhea Denied any dysuria, frequency, urgency Review of Systems Review of Systems: All systems reviewed and unremarkable except for mentioned above. Physical Exam Physical Exam: General: Obese woman in no obvious distress Eyes: PERRL, conjunctivae normal, EOM intact bilaterally ENMT: External ear and nose normal, oropharynx normal Neck: Normal visual inspection, no tracheal deviation, no swelling noted Respiratory: Normal respiratory effort, no respiratory distress, lungs clear to auscultation, no crackles and no wheezes Cardiovascular: Pulse is RRR. S1-S2, no pedal edema Chest (Breasts): Chest: normal inspection of chest Gastrointestinal (Abdomen): Abdomen is not distended, soft, non-tender to palpation, no guarding, no palpable hepatosplenomegaly, normal bowel sounds Musculoskeletal: No cyanosis or clubbing, all extremities motor strength 5/5 Genitourinary: No CVA tenderness Skin: Clean dressing over lower back with an area of indurated erythematous skin around dressing, below it extending up to the upper part of the manuel cleft. No obvious discharge on exam Neurologic: Alert and oriented x 3, No focal weakness, sensation grossly intact Psychiatric: Euthymic affect, no depressed affect Results & Data Vital Signs (Past 12 Hours) Vital Signs Temp Pulse Resp BP Pulse Ox 10/09/19 07:10 36.5 C 69 16 110/73 94 10/08/19 23:18 36.7 C 85 16 102/63 93 Laboratory Results Laboratory Results - last 24 hr 10/09/19 10/09/19 05:28 05:28 WBC 7.60 RBC 3.17 L Hgb 9.7 L Hct 30.9 L MCV 97.5 MCH 30.6 MCHC 31.4 L RDW Std Deviation 44.0 RDW Coeff of Konstantin 12.2 Plt Count 570 H MPV 8.7 Sodium 140 Potassium 3.6 Chloride 105 Carbon Dioxide 32 Anion Gap 3.0 BUN 7 Creatinine 0.65 Est Cr Clr Drug Dosing 120.5 Est GFR ( Amer) 111.8 Est GFR (Non-Af Amer) 96.5 BUN/Creatinine Ratio 11.3 Glucose 84 Calcium 8.5
[2019-10-09] MEDS: LORazepam 1 MG TAB PO PRN (10:37)
[2019-10-09] MEDS: TRAMADOL HCL 50 MG TABLET PO PRN (11:45)
[2019-10-09] MEDS ORDERED: DEXAMETHASONE SOD INJ 4 MG/ML VIAL IV PRN (15:41)
[2019-10-09] MEDS ORDERED: ATROPINE SULFATE 0.1 MG/ML 10ML SYR IV PRN (15:41)
[2019-10-09] MEDS ORDERED: ePHEDrine sulfate 50 MG/ML AMP IV PRN (15:41)
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
[2019-10-09] MEDS ORDERED: EPINEPHrine INJ 1 MG/ML AMP ONE (15:55)
[2019-10-09] MEDS ORDERED: VANCOMYCIN HCL 1000MG/20ML VIAL ONE (15:56)
[2019-10-09] MEDS ORDERED: BACITRACIN INJ 50,000 UNIT VIAL ONE ×2 (15:56→16:03)
[2019-10-09] MEDS ORDERED: BUPIVACAINE 0.5 % 5 MG/1 ML MPF 30ML VIAL ONE (15:56)
[2019-10-09] MEDS ORDERED: GENTAMICIN SULFATE 40 MG/ML 2 ML VIAL ONE (15:56)
[2019-10-09] MEDS ORDERED: ONDANSETRON INJ 2 MG/ML 2 ML VIAL ONE (16:07)
[2019-10-09] MEDS ORDERED: LIDOCAINE HCL 2% 2 ML VIAL/AMP(20MG/ML) INFIL ONE (16:07)
[2019-10-09] MEDS ORDERED: MIDAZOLAM HCL 1 MG/ML 2ML VIAL ONE (16:07)
[2019-10-09] MEDS ORDERED: PROPOFOL IV EMULSION 10 MG/ML 20 ML VIAL IV ONE ×2 (16:07→17:07)
[2019-10-09] MEDS ORDERED: ROCURONIUM BROMIDE 10 MG/ML 5 ML VIAL ONE (16:07)
[2019-10-09] MEDS ORDERED: fentaNYL citrate 100 MCG/2 ML VIAL ONE ×3 (16:07→17:07)
[2019-10-09] MEDS ORDERED: GLYCOPYRROLATE 0.2 MG/ML VIAL ONE (16:58)
[2019-10-09] MEDS ORDERED: NEOSTIGMINE METHYLSULFATE 5 MG/5 ML SYR ONE (16:58)
--- NOTE | 2019-10-09 16:59 | Operative Report ---
Post Operative Report Pre & Post Diagnosis Operation Date: 10/09/19 07:00 Pre-Op Diagnosis: seromatoma and possible hemotoma Post-Op Diagnosis: seromatoma and possible hemotoma I identified the patient and participated in the time-out.: Yes Procedure Operation Date: 10/09/19 07:00 Actual Procedures #1 irrigation debridement lumbar spine with cultures taken both superficial and deep. #2 placement of 10 cc of stimulan beads impregnated with vancomycin gentamicin. Surgeon Jerry Huerta, Watch Engineer Torres Thurman Estimated Blood Loss 20 Findings Consistent with Post-Op Diagnosis Specimens Cultures taken both superficial and deep. Indications This is a 59-year-old female well-known to me status post lumbar decompression fusion patient presents the emergency room last evening with a draining lumbar incision. While her white count was within normal limits her sed rate was 90 and her platelets were over 500. Subsequently we elected to go an urgent I&D lumbar spine. Description of Procedure Patient was met with identified informed consent obtained. Patient was then taken to the operative suite underwent an patient placed in a prone position on the Jovan table on top of the Francis frame. All bony prominences well-padded eyes inspected to ensure no external pressure placed upon the peer at this point the lumbar spine was prepped and draped in normal sterile fashion. Sharp dissection was performed through the previous incision site. A large seroma he matoma was identified. It was evacuated its entirety. Cultures were obtained as well. I copiously irrigated this area with antibiotic solution and then proceeded through the fascial layer. I with the fascia was divided in the area explored without discovering any pockets of fluid. Again the incision was copiously irrigated and approximately 3 cc of stimulant beads were placed in the subfascial layer with the remaining beads placed in his subcutaneously. Incision was closed with 2-0 Prolene 15 round RBOERT drain was also inserted. Sterile dressing was placed the patient awakened taken to PACU stable condition. Please note Torres Thurman was present at the entire procedure involved the patient positioning complex portions of the surgery and final skin closure. I attest to the content of the Intraoperative Record and any orders documented therein. Any exceptions are noted below.
[2019-10-09] MEDS ORDERED: DAPTOmycin 500 MG in SYRINGE 0 ML IV SCH (17:00)
[2019-10-09] MEDS: fentaNYL citrate 100 MCG/2 ML VIAL IV PRN ×4 (17:47→18:26)
[2019-10-09] MEDS: HYDROmorphone INJ 1 MG/ML SYRINGE IV PRN ×4 (18:01→18:16)
[2019-10-09] MEDS ORDERED: FLOSEAL HEMOSTATIC MATRIX 10ML TOP ONE (18:32)
[2019-10-09] MEDS: SODIUM CHLORIDE 0.9% 1000ML 1,000 ML IV SCH (18:55)
[2019-10-09] MEDS ORDERED: DO NOT ADMINISTER PNEUMOCOCCAL VACCINE PRN (19:03)
[2019-10-09] MEDS ORDERED: ACETAMINOPHEN 325 MG TAB PO PRN (19:03)
[2019-10-09] MEDS ORDERED: ONDANSETRON INJ 2 MG/ML 2 ML VIAL IV PRN (19:03)
[2019-10-09] MEDS ORDERED: DO NOT ADMINISTER FLU VACCINE PRN (19:03)
--- NOTE | 2019-10-09 19:06 | Anesthesiology Progress Note ---
Date of Service October 09, 2019 Anesthesia Post Procedure Vital Signs Vital Signs: Temp Pulse Pulse Resp BP BP Pulse Ox 10/09/19 18:45 36.4 C L 77 14 130/73 95 10/09/19 18:35 75 15 131/79 94 10/09/19 18:25 79 10 L 143/65 H 95 10/09/19 18:15 82 17 127/58 L 94 10/09/19 18:05 78 14 149/60 H 96 10/09/19 17:55 79 16 156/62 H 95 10/09/19 17:45 81 19 156/70 H 94 10/09/19 17:39 36.4 C L 80 16 159/69 H 97 10/09/19 15:28 37.0 C 89 16 150/82 H 94 10/09/19 07:10 36.5 C 69 16 110/73 94 10/08/19 23:18 36.7 C 85 16 102/63 93 Pain Intensity Back: Pain Intensity: 6 Transfer of Care Handoff Completed per policy Notes Mental Status: alert / awake / arousable and participated in evaluation Patient Amnestic to Procedure: Yes Nausea / Vomiting: adequately controlled Pain: adequately controlled Airway Patency, RR, SpO2: stable & adequate BP & HR: stable & adequate Hydration State: stable & adequate Anesthetic Complications: no major complications apparent and Pt Satisfied with anesthetic care
[2019-10-09] MEDS: MONTELUKAST SODIUM 10 MG TABLET PO SCH (20:45)
[2019-10-09] MEDS: CITALOPRAM 40 MG TAB PO SCH (20:45)
[2019-10-10] MEDS: TRAMADOL HCL 50 MG TABLET PO PRN ×2 (01:52→08:14)
[2019-10-10] MEDS: OXYCODONE HCL IR 5 MG TAB (IMMEDIATE RELEASE) PO PRN ×3 (03:16→15:48)
[2019-10-10] MEDS: PIPERACILLIN/TAZOBACTAM 4.5 GM in DEXTROSE 5% 100 ML IV SCH ×2 (05:24→14:04)
[2019-10-10] MEDS: SODIUM CHLORIDE 0.9% 1000ML 1,000 ML IV SCH (06:35)
[2019-10-10] MEDS: ACETAMINOPHEN 500 MG TAB PO PRN (06:37)
[2019-10-10] MEDS ORDERED: LEVOCETIRIZINE DIHYDROCHLORIDE PO SCH (09:00)
[2019-10-10] MEDS: FUROSEMIDE 40 MG TAB PO SCH (09:17)
[2019-10-10] MEDS: MULTIVITAMIN TAB PO SCH (09:17)
[2019-10-10] MEDS: CYANOCOBALAMIN 500 MCG TABLET (VITAMIN B-12) PO SCH (09:17)
[2019-10-10] MEDS: DOCUSATE SODIUM 100 MG CAP PO SCH ×2 (09:18→20:35)
[2019-10-10] MEDS: URSODIOL 300 MG CAP PO SCH ×2 (09:18→20:34)
[2019-10-10] MEDS: PANTOprazole 40 MG TAB PO SCH ×2 (09:18→20:36)
[2019-10-10] MEDS: CHOLECALCIFEROL 1,000 UNITS TAB PO SCH (09:19)
[2019-10-10] MEDS: GABAPENTIN 800 MG TAB PO SCH ×3 (09:19→20:35)
--- NOTE | 2019-10-10 10:24 | Orthopedic Progress Note ---
Date of Service October 10, 2019 Assessment & Plan (1) S/P lumbar spinal fusion: At this time we will maintain the dressing today with the drain. Most likely discontinue tomorrow. Her cultures thus far have been negative. There were no organisms on her Gram stain. Hopefully we identified a organized hematoma only and interceded before any infection occurred. We await final cultures for determine her disposition. Present on Admission?: Yes Subjective Back pain is controlled she has no leg pain. Physical Exam Physical Exam: Patient does have good strength testing. Unfortunately his drain her drain is no longer holding suction. The dressings in place. Results & Data Vital Signs (Past 12 Hours) Vital Signs Temp Pulse Resp BP Pulse Ox 10/10/19 03:13 36.5 C 83 16 137/67 95 10/09/19 23:30 94 10/09/19 23:25 36.7 C 88 18 130/74 76 L
--- NOTE | 2019-10-10 12:26 | Hospitalist Progress Note ---
Date of Service October 10, 2019 Assessment & Plan (1) Postoperative hematoma: Patient had surgery yesterday. Per operative report, a large seroma / hematoma was identified and successfully evacuated Patient remains afebrile, no leukocytosis, negative blood cultures. Culture from superficial wound growing staph. Culture from deep wound no growth at this time. Discontinue Zosyn for now. Continue daptomycin for now while awaiting final results. Will consider discontinuing daptomycin if no other signs of infection Surgical site care and management per primary surgical team (2) Leg edema: Trace edema on exam. Continue home Lasix (3) GERD (gastroesophageal reflux disease): Continue PPI (4) Anxiety: Continue citalopram (5) Asthma: Stable, no signs of acute exacerbation Does not use routine inhalers at home (6) DVT prophylaxis: Teds/SCDs as per spine orthopedics We will follow the patient with you during their hospital stay. You can reach me or [facility] Team 06/05 via pager @ [phone]. Subjective Patient has no complaints today. Denied any fevers, chills, nausea, vomiting Denies any pain at surgical site, lower extremity weakness, saddle anesthesia or incontinence Review of Systems Review of Systems: All systems reviewed and unremarkable except for mentioned above. Physical Exam Physical Exam: General: Obese woman in no obvious distress Eyes: PERRL, conjunctivae normal, EOM intact bilaterally ENMT: External ear and nose normal, oropharynx normal Neck: Normal visual inspection, no tracheal deviation, no swelling noted Respiratory: Normal respiratory effort, no respiratory distress, lungs clear to auscultation, no crackles and no wheezes Cardiovascular: Pulse is RRR. S1-S2, no pedal edema Chest (Breasts): Chest: normal inspection of chest Gastrointestinal (Abdomen): Abdomen is not distended, soft, non-tender to palpation, no guarding, no palpable hepatosplenomegaly, normal bowel sounds Musculoskeletal: No cyanosis or clubbing, all extremities motor strength 5/5 Genitourinary: No CVA tenderness Skin: Clean dressing over surgical site on lower lumbar region with ROBERT drain insitu Neurologic: Alert and oriented x 3, No focal weakness, sensation grossly intact Psychiatric: Euthymic affect, no depressed affect Results & Data Vital Signs (Past 12 Hours) Vital Signs Temp Pulse Resp BP Pulse Ox 10/10/19 11:26 36.7 C 79 16 126/74 96 10/10/19 03:13 36.5 C 83 16 137/67 95
[2019-10-10] MEDS: LORazepam 1 MG TAB PO PRN (14:04)
[2019-10-10] MEDS ORDERED: DAPTOmycin 500 MG VIAL IV SCH (18:00)
[2019-10-10] MEDS ORDERED: DAPTOmycin 500 MG in SYRINGE 0 ML IV SCH (18:00)
--- NOTE | 2019-10-10 19:17 | Anesthesiology Progress Note ---
Date of Service October 10, 2019 Anesthesia Post Procedure Vital Signs Vital Signs: Temp Pulse Resp BP Pulse Ox 10/10/19 15:35 36.6 C 78 20 115/75 96 10/10/19 11:26 36.7 C 79 16 126/74 96 10/10/19 03:13 36.5 C 83 16 137/67 95 10/09/19 23:30 94 10/09/19 23:25 36.7 C 88 18 130/74 76 L 10/09/19 21:50 36.6 C 85 16 128/66 94 10/09/19 20:55 36.6 C 86 16 127/66 93 10/09/19 20:01 36.4 C 84 16 129/65 94 10/09/19 19:25 36.6 C 81 16 134/73 94 Pain Intensity Back: Pain Intensity: 7 Transfer of Care Handoff Completed per policy Notes Mental Status: see notes below (Pt was sleeping comfortably in her room) Patient Amnestic to Procedure: Yes Nausea / Vomiting: adequately controlled Pain: adequately controlled Airway Patency, RR, SpO2: stable & adequate BP & HR: stable & adequate Hydration State: stable & adequate Anesthetic Complications: no major complications apparent
[2019-10-10] MEDS: CITALOPRAM 40 MG TAB PO SCH (20:34)
[2019-10-10] MEDS: MONTELUKAST SODIUM 10 MG TABLET PO SCH (20:35)
[2019-10-11] MEDS: TRAMADOL HCL 50 MG TABLET PO PRN ×3 (00:52→18:40)
[2019-10-11] MEDS ORDERED: DiphenhydrAMINE HCL 50 MG/ML VIAL IV STA (01:10)
[2019-10-11 06:00] LABS: Creatinine Clr Calc Pharmacy 166.6 ml/min; Est GFR (African American) 124.4; Est GFR (Non-African American) 107.4
[2019-10-11] MEDS ORDERED: Nursing to Pharmacy Communication ONE (08:09)
[2019-10-11] MEDS: OXYCODONE HCL IR 5 MG TAB (IMMEDIATE RELEASE) PO PRN ×3 (08:13→20:54)
[2019-10-11] MEDS: MULTIVITAMIN TAB PO SCH (08:52)
[2019-10-11] MEDS: FUROSEMIDE 40 MG TAB PO SCH (08:52)
[2019-10-11] MEDS: CHOLECALCIFEROL 1,000 UNITS TAB PO SCH (08:53)
[2019-10-11] MEDS: URSODIOL 300 MG CAP PO SCH ×2 (08:53→20:46)
[2019-10-11] MEDS: CYANOCOBALAMIN 500 MCG TABLET (VITAMIN B-12) PO SCH (08:53)
[2019-10-11] MEDS: DOCUSATE SODIUM 100 MG CAP PO SCH ×2 (08:53→20:46)
[2019-10-11] MEDS: PANTOprazole 40 MG TAB PO SCH ×2 (08:53→20:48)
[2019-10-11] MEDS: GABAPENTIN 800 MG TAB PO SCH ×3 (08:54→20:48)
--- NOTE | 2019-10-11 10:04 | Orthopedic Progress Note ---
Date of Service October 11, 2019 Assessment & Plan (1) Post-operative wound abscess: At this time her cultures are growing staph aureus. Sensitivities are pending. I will consult infectious disease in the a.m. for their input. Hopefully she will be able to discharge home Saturday or Saturday with appropriate medication. Present on Admission?: Yes Subjective Patient's back pain is controlled no leg pain. Physical Exam Physical Exam: On exam she is ambulating the halls with a walker without difficulty. Results & Data Vital Signs (Past 12 Hours) Vital Signs Temp Pulse Resp BP Pulse Ox 10/11/19 07:28 36.7 C 82 16 140/81 94 10/11/19 04:30 36.7 C 82 18 118/70 92 10/10/19 22:50 37 C 87 20 108/73 95
--- NOTE | 2019-10-11 13:47 | Hospitalist Progress Note ---
Date of Service October 11, 2019 Assessment & Plan (1) Postoperative hematoma: Patient had surgery on 10/09/19 Per operative report, a large seroma / hematoma was identified and successfully evacuated Patient remains afebrile, no leukocytosis, negative blood cultures. Unclear if symptom patient report is actual allergy as patient did not receive daptomycin yesterday until 6 PM but states that that symptom happened in the afternoon around 2-3 pm after she got an iv injection. Per MAR, daptomycin for 10/09/19 was not given and was stated to have been sent to OR. It is not clear if this was given from my review of chart, MAR and discussion with RN Daptomycin discontinued. Patient was also on Zosyn which was discontinued yesterday. She does report allergies with hives to cephalics parents but stated that she had had penicillins in the past without allergy Culture from superficial wound growing MRSA. Culture from deep wound no growth. From my exam prior to or on 10/09/2019, patient did have an indurated erythematous area on the lower back [refer to progress note of 10/09/2019]. MRSA from superficial culture could be from MRSA cellulitis versus contaminant. However, will treat with doxycycline based off of sensitivities. Patient used doxycycline before without any allergies. Will recommend ID consult Surgical site care and management per primary surgical team (2) Leg edema: Continue home Lasix (3) GERD (gastroesophageal reflux disease): Continue PPI (4) Anxiety: Continue citalopram Patient denies depression. States she is worried about her health and hoping to go home soon. We will continue to monitor and provide support as needed (5) Asthma: Stable, no signs of acute exacerbation Does not use routine inhalers at home (6) DVT prophylaxis: SCDs and ambulate We will follow the patient with you during their hospital stay. You can reach me or [facility] 06/05 via pager @ [phone]. Subjective Patient seen and evaluated. Reported that she has an episode of lumpiness in her throat and 'funny feeling in her chest yesterday' afternoon. She believes that this is related to daptomycin. Patient is worried about her hospital stay, stating that she was told by the surgeon that she may stay till Saturday when she was hoping to be discharged earlier. She stated she was hoping to spend time with her family and not have to be in the hospital. Patient started crying during our conversation. She denies any rash, difficulty swallowing, shortness of breath, cough Denies any dizziness, chest pain, palpitations Review of Systems Review of Systems: All systems reviewed and unremarkable except for mentioned above. Physical Exam Physical Exam: General: Obese woman in no obvious distress Eyes: PERRL, conjunctivae normal, EOM intact bilaterally ENMT: External ear and nose normal, oropharynx normal Neck: Normal visual inspection, no tracheal deviation, no swelling noted Respiratory: Normal respiratory effort, no respiratory distress, lungs clear to auscultation, no crackles and no wheezes Cardiovascular: Pulse is RRR. S1-S2, no pedal edema Chest (Breasts): Chest: normal inspection of chest Gastrointestinal (Abdomen): Abdomen is not distended, soft, non-tender to palpation, no guarding, no palpable hepatosplenomegaly, normal bowel sounds Musculoskeletal: No cyanosis or clubbing, all extremities motor strength 5/5 Genitourinary: No CVA tenderness Skin: Clean dressing over surgical site on lower lumbar region Neurologic: Alert and oriented x 3, No focal weakness, sensation grossly intact Psychiatric: Euthymic affect, no depressed affect Results & Data Vital Signs (Past 12 Hours) Vital Signs Temp Pulse Resp BP Pulse Ox 10/11/19 07:28 36.7 C 82 16 140/81 94 10/11/19 04:30 36.7 C 82 18 118/70 92 Laboratory Results Abnormal lab results 10/11/19 Range/Units 05:13 Creatinine 0.47 L (0.6-1.2) mg/dl
[2019-10-11] MEDS: CITALOPRAM 40 MG TAB PO SCH (20:45)
[2019-10-11] MEDS: MONTELUKAST SODIUM 10 MG TABLET PO SCH (20:48)
[2019-10-11] MEDS: DOXYCYCLINE HYCLATE 100 MG CAP PO SCH (20:49)
[2019-10-11] MEDS ORDERED: LEVOCETIRIZINE DIHYDROCHLORIDE PO SCH (21:00)
[2019-10-12] MEDS: DOXYCYCLINE HYCLATE 100 MG CAP PO SCH (08:05)
[2019-10-12] MEDS: OXYCODONE HCL IR 5 MG TAB (IMMEDIATE RELEASE) PO PRN ×2 (08:05→14:08)
[2019-10-12] MEDS: CHOLECALCIFEROL 1,000 UNITS TAB PO SCH (08:06)
[2019-10-12] MEDS: FUROSEMIDE 40 MG TAB PO SCH (08:06)
[2019-10-12] MEDS: GABAPENTIN 800 MG TAB PO SCH ×2 (08:06→14:08)
[2019-10-12] MEDS: PANTOprazole 40 MG TAB PO SCH (08:06)
[2019-10-12] MEDS: MULTIVITAMIN TAB PO SCH (08:06)
[2019-10-12] MEDS: CYANOCOBALAMIN 500 MCG TABLET (VITAMIN B-12) PO SCH (08:06)
[2019-10-12] MEDS: URSODIOL 300 MG CAP PO SCH (08:06)
[2019-10-12] MEDS: DOCUSATE SODIUM 100 MG CAP PO SCH (08:06)
--- NOTE | 2019-10-12 10:08 | Orthopedic Progress Note ---
Date of Service October 12, 2019 Assessment & Plan (1) Infection of lumbar spine: At this time we have attempted to consult infectious disease. Unfortunately they are out of town for the week. We will defer to medicine for further recommendation. This time she is on doxycycline p.o. twice daily. If this is acceptable we allow her to discharge home with oral doxycycline and follow-up with infectious disease upon their return. Present on Admission?: Yes Subjective Patient's back pain is controlled ambulating well. Physical Exam Physical Exam: Patient is in the chair at the bedside. Is good strength testing. Erythema around the incision is improving. Results & Data Vital Signs (Past 12 Hours) Vital Signs Temp Pulse Resp BP Pulse Ox 10/12/19 07:10 36.7 C 75 16 135/74 96 10/11/19 22:54 36.8 C 77 16 116/74 96
[2019-10-12] MEDS: TRAMADOL HCL 50 MG TABLET PO PRN (10:38)
--- NOTE | 2019-10-12 13:04 | Hospitalist Progress Note ---
Date of Service October 12, 2019 Assessment & Plan (1) Surgical site infection: (2) Postoperative hematoma: Patient had surgery on 10/09/19 Per operative report, a large seroma / hematoma was identified and successfully evacuated Erythematous indurated skin at surgical site Patient remains afebrile, no leukocytosis, negative blood cultures. Culture from superficial wound growing MRSA. Culture from deep wound no growth. Discussed with ID physician JEANNINE Tyson. Recommends continuing doxycycline to complete 14 days of therapy if no concerns for deep infection extending to the vertebra Discussed with primary surgeon Dr. Huerta. Stated that operation does not reveal deep surgical site infection Continue antibiotics and follow-up with the surgeon. Surgical site care and management per primary surgical team (3) Leg edema: Continue home Lasix (4) GERD (gastroesophageal reflux disease): Continue PPI (5) Anxiety: Continue citalopram Patient denies depression. States she is worried about her health and hoping to go home soon. We will continue to monitor and provide support as needed (6) Asthma: Stable, no signs of acute exacerbation Does not use routine inhalers at home (7) DVT prophylaxis: SCDs and ambulate Subjective Patient seen and examined today. Denies any fevers, chills, nausea or vomiting Pain at surgical site is well controlled. Review of Systems Review of Systems: All systems reviewed and unremarkable except for mentioned above. Physical Exam Physical Exam: General: Obese woman in no obvious distress Eyes: PERRL, conjunctivae normal, EOM intact bilaterally ENMT: External ear and nose normal, oropharynx normal Neck: Normal visual inspection, no tracheal deviation, no swelling noted Respiratory: Normal respiratory effort, no respiratory distress, lungs clear to auscultation, no crackles and no wheezes Cardiovascular: Pulse is RRR. S1-S2, no pedal edema Chest (Breasts): Chest: normal inspection of chest Gastrointestinal (Abdomen): Abdomen is not distended, soft, non-tender to palpation, no guarding, no palpable hepatosplenomegaly, normal bowel sounds Musculoskeletal: No cyanosis or clubbing, all extremities motor strength 5/5 Genitourinary: No CVA tenderness Skin: Clean dressing over surgical site on lower lumbar region Neurologic: Alert and oriented x 3, No focal weakness, sensation grossly intact Psychiatric: Euthymic affect, no depressed affect Results & Data Vital Signs (Past 12 Hours) Vital Signs Temp Pulse Resp BP Pulse Ox 10/12/19 07:10 36.7 C 75 16 135/74 96
== END 2019-10-12 14:47 | disposition home or self-care (01) | DRG 908 ==
LOC: ED 15:14 → 3W 17:44